=== PATIENT | male | born 1955 | race Caucasian/White ===

== ENCOUNTER 2020-04-28 10:27 | Emergency (ER) | payer OTHER, SELFPAY ==
[2020-04-28 10:43] VITALS: BP 141/74; PULSE 63; RESP 18; TEMP 36.6; O2SAT 100
--- NOTE | 2020-04-28 10:57 | ED.BACK ---
HPI - Back Pain/Injury General Chief Complaint: Back Pain/Injury Stated Complaint: Lower back pain Time Seen by Provider: 04/28/20 10:57 Source: patient and RN notes reviewed Mode of arrival: ambulatory Limitations: no limitations History of Present Illness HPI Narrative: 64-year-old male presents with concern for left low back pain that started yesterday. He denies any injury or trauma. Reports he bent over and when he stood up he felt the pain. Reports he has been taking ibuprofen and Tylenol with occasional relief. He denies any loss of bowel or bladder function, denies perianal anesthesia, denies abdominal pain, denies fever. MD elicited complaint: back pain Related Data Home Medications Medication Instructions Recorded Confirmed amlodipine 5 mg PO BID 04/28/20 04/28/20 lansoprazole [Prevacid] 30 mg PO DAILY 04/28/20 04/28/20 lisinopril 20 mg PO BID 04/28/20 04/28/20 pravastatin 40 mg PO DAILY 04/28/20 04/28/20 tamsulosin 0.4 mg PO DAILY 04/28/20 04/28/20 Allergies Allergy/AdvReac Type Severity Reaction Status Date / Time No Known Allergies Allergy Verified 04/28/20 10:58 Review of Systems Review of Systems: Narrative: CONSTITUTIONAL: Denies malaise, chills, sweats, or fever. CARDIOVASCULAR: Denies chest pain, palpitations, or edema. RESPIRATORY: Denies cough or dyspnea. GASTROINTESTINAL: Denies abdominal pain, nausea, vomiting, diarrhea GENITOURINARY: Denies dysuria or hematuria. SKIN: Denies bruising, redness MUSCULOSKELETAL: Reports left low back pain NEUROLOGIC: Denies numbness, weakness, or headache. All systems reviewed & are unremarkable except as noted in HPI and below PMFSH Comments At time of signature, agree with nursing past medical, surgical, social and family history. There is no relevant family history pertinent to the presenting complaint Exam Narrative: Exam Narrative: GENERAL: Well-appearing, well-nourished, and in no acute distress. HEAD: Normocephalic, atraumatic. EYES: PERRLA and EOMI. NECK: Supple. No lymphadenopathy. CHEST: Clear to auscultation. No respiratory distress. HEART: Regular rate and rhythm. Distal pulses palpable and equal, cap refill <3 seconds ABDOMEN: Soft, nontender, nondistended, normal active bowel sounds, no palpable or pulsatile masses. No CVA tenderness MUSCULOSKELETAL: Normal range of motion and strength in all extremities; 5/5 strength with hip flexion and extension, dorsiflexion and extension, knee flexion and extension, plantar flexion and extension. Normal sensation in dermatomal distributions with sensitivity to light touch and pain. No midline back tenderness to palpation. No paraspinal tenderness. Transfers from sitting to standing. SKIN: Warm, dry, no rash. No ecchymosis, erythema, open wounds to back. NEURO: No focal deficits. Alert and oriented x3. Reflexes intact. Normal gait. PSYCH: Normal mood and affect Course Course Emergency Course: Patient is aware of diagnosis, understands and agrees to treatment plan. Anticipatory guidance given. Patient agrees to follow-up as directed and is aware of reasons to seek care at the emergency department. Portions of this record may have been created with voice recognition software Vital Signs Vital signs: Vital Signs Temperature 97.8 F 04/28/20 10:43 Pulse Rate 63 04/28/20 10:43 Respiratory Rate 18 04/28/20 10:43 Blood Pressure 141/74 H 04/28/20 10:43 Pulse Oximetry 100 04/28/20 10:43 Temperature 97.8 F 04/28/20 10:43 Pulse Rate 63 04/28/20 10:43 Respiratory Rate 18 04/28/20 10:43 Blood Pressure 141/74 H 04/28/20 10:43 Pulse Oximetry 100 04/28/20 10:43 Reviewed. MDM - Back Pain/Injury MDM Narrative Medical decision making narrative: No risk factors or findings concerning for epidural abscess, diskitis, vertebral osteomyelitis, cord compression, cauda equina, vertebral fracture or bone malignancy, AAA, or pyelonephritis. Patient instructed to consider further imaging and
== END 2020-04-28 11:09 | disposition home or self-care (01) ==
PROVIDERS: Emergency Provider Nurse Practitioner; PCP Internal Medicine
DX: M54.5 Low back pain (principal); E78.00 Pure hypercholesterolemia, unspecified; I10 Essential (primary) hypertension; K21.9 Gastro-esophageal reflux disease without esophagitis; K22.70 Barrett's esophagus without dysplasia; N40.0 Benign prostatic hyperplasia without lower urinary tract symptoms
CPT/HCPCS: 99213; G0463

== ENCOUNTER 2022-02-26 14:12 | Emergency (ER) | payer MEDICARE, SELFPAY ==
--- NOTE | ~2022-02-26 | XR_ITS ---
XR foot LT min 3V DATE: 02/26/2022 14:42 INDICATION: Kicked in table 6 days ago. Fourth toe pain. TECHNIQUE: 4 views COMPARISON: None FINDINGS: No fracture or dislocation, periosteal reaction or bone destruction or erosive change is no georgie. Prominent calcification in the region of the distal Achilles tendon and prominent plantar calcaneal e nthesopathy. IMPRESSION: No recent fracture or dislocation Calcaneal enthesopathy Reviewed, dictated and finalized at location B.
--- NOTE | 2022-02-26 14:14 | ED.LOWEXIN ---
HPI - Extremity Injury (Lower) General Chief Complaint: Extremity Injury, Lower Stated Complaint: left foot toe problem Time Seen by Provider: 02/26/22 14:14 Source: patient and RN notes reviewed History of Present Illness HPI Narrative: Patient is a 66-year-old male who presents the urgent care with complaints of pain and swelling to the left fourth toe after kicking an end table 1 week ago. Patient states he has been elevating and using ice and ibuprofen as well as moira taping the toe. No other acute complaints. No acute distress noted. Patient aware of the plan of care. Some parts of this dictation were generated by voice recognition software and may contain typographical and/or grammatical inaccuracies. Related Data Home Medications Medication Instructions Recorded Confirmed amlodipine 5 mg tablet 5 mg PO BID 04/28/20 04/28/20 lansoprazole 30 mg capsule,delayed 30 mg PO DAILY 04/28/20 04/28/20 release (Prevacid) lisinopril 20 mg tablet 20 mg PO BID 04/28/20 04/28/20 pravastatin 40 mg tablet 40 mg PO DAILY 04/28/20 04/28/20 tamsulosin 0.4 mg capsule 0.4 mg PO DAILY 04/28/20 04/28/20 Allergies Allergy/AdvReac Type Severity Reaction Status Date / Time No Known Allergies Allergy Verified 02/26/22 14:30 Review of Systems Review of Systems: CONSTITUTIONAL: Denies fever, chills, or sweats. EYES: Denies visual changes, redness, or discharge. ENT: Denies rhinorrhea, congestion, sore throat, or otalgia. CARDIOVASCULAR: Denies chest pain, palpitations, or edema. RESPIRATORY: Denies cough or dyspnea. GASTROINTESTINAL: Denies abdominal pain, nausea, vomiting, or diarrhea. GENITOURINARY: Denies dysuria or hematuria. SKIN: Denies rash or itching. MUSCULOSKELETAL: Reports of left fourth toe pain and swelling NEUROLOGIC: Denies headache, numbness, or weakness. All other systems reviewed are negative, except as documented in HPI. PMFSH Comments At the time of my signature, I reviewed and agree with the nursing past medical, surgical, social, and family history. There is no relevant family history pertinent to the patient complaint. Exam Narrative: GENERAL: This is a well-nourished, well-developed patient, in no apparent distress. HEAD: normocephalic, atraumatic. EYES: PERRL. Sclera clear/white. Vision is grossly intact. EARS: External ears normal NOSE: External nose normal with no obvious nasal discharge, nares without redness, no rhinorrhea. THROAT: Mucous membranes moist NECK: Neck supple SKIN: warm, intact with no suspicious lesions or rash, good texture and turgor. NEURO: awake, alert, and oriented to person, place and time. There were no obvious focal neurologic abnormalities. EXTREMITIES: Mild edema and improving ecchymosis to the left fourth lower extremity digit with mild tenderness without obvious deformity. Positive strong left pedal pulse with capillary refill less than 2 seconds. Range of motion to left lower extremity within normal limits Course Course Level of Care: Express Care Visit Vital Signs Vital signs: Vital Signs Temperature 97.6 F 02/26/22 14:22 Pulse Rate 96 02/26/22 14:22 Respiratory Rate 20 02/26/22 14:22 Blood Pressure 144/90 H 02/26/22 14:22 Pulse Oximetry 99 02/26/22 14:22 Oxygen Delivery Room Air 02/26/22 14:22 Temperature 97.6 F 02/26/22 14:22 Pulse Rate 96 02/26/22 14:22 Respiratory Rate 20 02/26/22 14:22 Blood Pressure 144/90 H 02/26/22 14:22 Pulse Oximetry 99 02/26/22 14:22 Oxygen Delivery Room Air 02/26/22 14:22 Reviewed-patient is informed that they may have pre-hypertension or hypertension based on a blood pressure reading in the department. I recommend the patient call the primary care provider listed on their discharge instructions or a physician of their choice this week to arrange follow-up for further evaluation of possible pre-hypertension or hypertension. MDM - Extremity Injury (Lower) MDM Narrative Medical decision making n
[2022-02-26 14:22] VITALS: BP 144/90; PULSE 96; RESP 20; TEMP 36.4; O2SAT 99
== END 2022-02-26 15:03 | disposition home or self-care (01) ==
PROVIDERS: Emergency Provider Nurse Practitioner Family; PCP Internal Medicine
DX: S90.122A Contusion of left lesser toe(s) without damage to nail, initial encounter (principal); W22.03XA Walked into furniture, initial encounter; E78.00 Pure hypercholesterolemia, unspecified; I10 Essential (primary) hypertension; K21.9 Gastro-esophageal reflux disease without esophagitis; K22.70 Barrett's esophagus without dysplasia; N40.0 Benign prostatic hyperplasia without lower urinary tract symptoms
CPT/HCPCS: 73630; 99213; G0463

== ENCOUNTER 2023-05-31 16:29 | Emergency (ER) | payer MEDICARE, SELFPAY ==
[2023-05-31 16:40] VITALS: BP 162/101; PULSE 102; RESP 16; TEMP 36.6; O2SAT 98
--- NOTE | 2023-05-31 17:32 | ED.EAR ---
HPI - Ear Problem General Chief complaint: Ear Stated complaint: Left Ear Problem Time Seen by Provider: 05/31/23 16:50 Source: patient Mode of arrival: ambulatory Limitations: no limitations History of Present Illness HPI Narrative: Pavel is a 67-year-old male patient presenting to clinic today with complaints of left ear congestion and difficulty hearing. He reports he use some peroxide in his left ear and the peroxide did not come back out. Related Data Home Medications Medication Instructions Recorded Confirmed amlodipine 5 mg tablet 5 mg PO BID 04/28/20 05/31/23 lansoprazole 30 mg capsule,delayed 30 mg PO DAILY 04/28/20 05/31/23 release (Prevacid) lisinopril 20 mg tablet 20 mg PO BID 04/28/20 05/31/23 pravastatin 40 mg tablet 40 mg PO DAILY 04/28/20 05/31/23 tamsulosin 0.4 mg capsule 0.4 mg PO DAILY 04/28/20 05/31/23 Allergies Allergy/AdvReac Type Severity Reaction Status Date / Time No Known Allergies Allergy Verified 02/26/22 14:30 Review of Systems Review of Systems: Pertinent positives per HPI. Patient denies any fever, chills, rash, headache, visual changes, dizziness, cough, runny nose, sore throat, shortness of breath, chest pain, palpitations, nausea, vomiting, diarrhea, constipation, abdominal pain, or any urinary issues. PMFSH Comments At the time of my signature, I reviewed and agree with the nursing past medical, surgical, social, and family history. There is no relevant family history pertinent to the patient complaint. Exam Narrative: General: Well-developed, well nourished, in no apparent distress Head: Normocephalic, atraumatic Eyes: Pupils equally round and reactive to light bilaterally, EOM intact, sclera and conjunctive clear, no discharge, lids normal Ears: Bilateral cerumen impaction. Ear irrigation was performed successfully. TMs intact and congested, ear canals clear, no drainage, grossly hearing normal. Nose: Nares patent, no discharge, no inflammation, no sinus tenderness. Mouth: Oropharynx without lesions or masses, good dentition, MMM. Neck: Supple, trachea midline, no enlargement of anterior or posterior cervical nodes, no thyroid masses or goiter palpable. Cardio: Regular rate and rhythm, s1 and s2 normal, no murmur appreciated. Resp: Clear to auscultation bilaterally anteriorly and posteriorly, no rhonchi, rales, wheezing or rubs Course Course Emergency Course: Portions of this record may have been created with voice recognition software. Level of Care: Express Care Visit Vital Signs Vital signs: Vital Signs Temperature 36.6 C 05/31/23 16:40 Pulse Rate 102 H 05/31/23 16:40 Respiratory Rate 16 05/31/23 16:40 Blood Pressure 162/101 H 05/31/23 16:40 Pulse Oximetry 98 05/31/23 16:40 Oxygen Delivery Room Air 05/31/23 16:40 Temperature 36.6 C 05/31/23 16:40 Pulse Rate 102 H 05/31/23 16:40 Respiratory Rate 16 05/31/23 16:40 Blood Pressure 162/101 H 05/31/23 16:40 Pulse Oximetry 98 05/31/23 16:40 Oxygen Delivery Room Air 05/31/23 16:40 Vital signs reviewed Procedures Ear Wax Removal Both Ears: Ear Wax Removal Date: 05/31/23 Cerumenolytic Used: other (Peroxide) Results: Re-examined: cerumen removed completely TM Examination: TM(s) intact, normal appearance (Mild bulging) Ear Canal Exam: atraumatic Patient Tolerated Procedure: well and no complications Complications: no problems Technique: ear canal irrigated Additional Comments: Verbal consent obtained for ear irrigation. Risk and benefits explained and patient voiced understanding. Ear irrigation performed using an elephant ear and spray water bottle. Mixture of 1/2 peroxide 1/2 water used to irrigate ear canal. Cerumen impaction cleared and TM visualized without redness. Grossly hearing normal. Patient tolerated procedure well Medical Decision Making MDM Narrative Medical decision making narrat
== END 2023-05-31 17:38 | disposition home or self-care (01) ==
PROVIDERS: Emergency Provider Nurse Practitioner Family; PCP Internal Medicine
DX: H61.23 Impacted cerumen, bilateral (principal); E78.00 Pure hypercholesterolemia, unspecified; I10 Essential (primary) hypertension; K21.9 Gastro-esophageal reflux disease without esophagitis; K22.70 Barrett's esophagus without dysplasia; N40.0 Benign prostatic hyperplasia without lower urinary tract symptoms
CPT/HCPCS: 69209; 99212; A9270; G0463

== ENCOUNTER 2025-04-27 15:29 | Emergency (ER) | payer MEDICARE, SELFPAY ==
[2025-04-27 15:36] VITALS: BP 154/87; PULSE 97; RESP 20; TEMP 36.8; O2SAT 96
--- NOTE | 2025-04-27 15:52 | ED.WOUNDLAC ---
HPI - Wound/Laceration General Chief Complaint: Wound/Laceration Stated Complaint: Laceration to Finger Time Seen by Provider: 04/27/25 15:50 Source: patient and RN notes reviewed Mode of arrival: ambulatory Limitations: no limitations History of Present Illness HPI narrative: 69-year-old male patient presents to the [facility] complaining of laceration to his left for index finger. Patient reports having laceration to the dorsal surface of the left left index finger, Saint approximately 2 hours ago he was using a chainsaw when he accidentally cut his left finger. Patient denies any other injuries. Patient says is tetanus is up-to-date. Denies any numbness or tingling. Bleeding is controlled prior to arrival. Patient denies any dysfunction with his finger. Patient reports a history of a blood pressure and hyperlipidemia. Related Data Home Medications ?Medication ?Instructions ?Recorded ?Confirmed ?Last Taken ?Type amlodipine 5 mg tablet 5 mg PO BID 04/28/20 05/31/23 Unknown History lansoprazole 30 mg capsule,delayed 30 mg PO DAILY 04/28/20 05/31/23 Unknown History release (Prevacid) lisinopril 20 mg tablet 20 mg PO BID 04/28/20 05/31/23 Unknown History hydralazine 50 mg tablet mg 04/27/25 Unknown History hydrochlorothiazide 12.5 mg tablet mg 04/27/25 Unknown History pravastatin 20 mg tablet mg 04/27/25 Unknown History Allergies Allergy/AdvReac Type Severity Reaction Status Date / Time No Known Allergies Allergy Verified 04/27/25 15:40 Review of Systems Review of Systems: CONSTITUTIONAL: Denies fever, chills, or sweats. EYES: Denies visual changes, redness, or discharge. ENT: Denies rhinorrhea, congestion, sore throat, or otalgia. CARDIOVASCULAR: Denies chest pain, palpitations, or edema. RESPIRATORY: Denies cough or dyspnea. GASTROINTESTINAL: Denies abdominal pain, nausea, vomiting, or diarrhea. GENITOURINARY: Denies dysuria or hematuria. SKIN: Denies rash or itching. Severe laceration. MUSCULOSKELETAL: Denies back pain, joint pain, or myalgia. NEUROLOGIC: Denies headache, numbness, or weakness. PSYCHIATRIC: Denies anxiety or depression. All other systems reviewed are negative, except as documented in HPI. PMFSH Comments At the time of my signature, I reviewed and agree with the nursing past medical, surgical, social, and family history. There is no relevant family history pertinent to the patient complaint. Exam Narrative: GENERAL: This is a well-nourished, well-developed adult, in no apparent distress. They are non ill-appearing, nontoxic appearing. HEAD: normocephalic, atraumatic. EYES: Sclera clear/white. Conjunctiva normal. Vision is grossly intact. Extraocular movements intact EARS: External ears normal, Hearing grossly intact. NOSE: External nose normal THROAT: Mucous membranes moist, NECK: Neck supple, CARDIOVASCULAR: Regular rate and rhythm RESPIRATORY: Respiratory rate normal, respiratory effort nonlabored, no respiratory distress SKIN: warm, Dry, intact with no suspicious lesions or rash, good texture and turgor. NEURO: awake, alert, and oriented to person, place and time. There were no obvious focal neurologic abnormalities. EXTREMITIES: Left index point: Laceration to dorsal surface of the distal phalanx in between the PIP and PIP joint. It Is measuring approximately 2 cm long irregular/linear shaped. Wound approximates well. No surrounding erythema, no discharge, nontender to palpate. No bony tenderness. Patient able to flex and extend against resistance at the PIP, PIP, MCP joint. No injury to nail bed or plate. Capillary refill less than 2 seconds. Sensation intact. Neurovascular status intact distal injury. Radial, ulnar, median nerve distribution intact. Course Course Emergency Course: Portions of this record may have been created with voice recognition software Level of Care: Express Care Visit Vital Signs Vital signs: Vital Signs Temperature 98.2 F 04/27/25 15:36 Pulse Rate 97 04/27/25 15:36 Respiratory Rate 20 04/27/25 15:36 Blood Pressure 154/87 H 04/27/25 15:36 Pulse Oximetry 96 04/27/25 15:36 Oxygen Delivery Room Air 04/27/25 15:36 Temperature 98.2 F 04/27/25 15:36 Pulse Rate 97 04/27/25 15:36 Respiratory Rate 20 04/27/25 15:36 Blood Pressure 154/87 H 04/27/25 15:36 Pulse Oximetry 96 04/27/25 15:36 Oxygen Delivery Room Air 04/27/25 15:36 Reviewed Procedures Laceration Laceration 1: Date: 04/27/25 Time: 15:55 Site: hand (Left index finger) Side (If applicable): left Size (cm): 2 Description: linear and irregular Depth: simple, single layer Local Anesthetic: lidocaine 1% Amount of anesthesia used (mL): 2.5 Pre-repair: wound explored and irrigated extensively ====== Skin Level ====== Skin layer closed with: nylon Size (cm): 5-0 Number of sutures: 5 Technique: simple, interrupted ====== Subcutaneous Layer ====== ====== Muscle Layer ====== ====== Tendon Layer ====== Dressing: Antibiotic ointment, non adherent dressing, metal finger splint. MDM - Wound/Laceration MDM Narrative Medical decision making narrative: Neurovascular status intact distal to injury. Normal Function of left index finger. Successful laceration repair. Patient's tetanus is up today. No evidence of infection. Wound was cleaned is and dressed by nursing staff. Patient finger place the middle finger splint to help keep his finger straight to allow the wound to heal. Discussed physical exam findings. Advised supportive measures and signs/symptoms to go to the ER. Pt is appropriate for outpt treatment and f/u. Differential Diagnosis Differential diagnosis: Likely laceration, abrasion and avulsion of skin Critical Care Time Critical Care Time Critical Care Time: No Discharge Plan Discharge Clinical Impression: Finger laceration Qualifiers: Encounter type: initial encounter Finger: index finger Damage to nail status: without damage Foreign body presence: without foreign body Laterality: left Qualified Code(s): S61.211A - Laceration without foreign body of left index finger without damage to nail, initial encounter Patient Disposition: Home Condition: Stable Instructions: Antibiotic Form, Finger Laceration (ED) Additional Instructions: Your sutures need to be removed in 10-14 days. ?Wear the dressing that has been applied for the first 24 hours to allow a scab to start forming. ?After this, you may remove and wash as normal with soap and water. Do not soak or scrub the wound. ?Do NOT wash with peroxide or alcohol. ?You may apply antibiotic ointment or Vaseline to the wound daily. Please change the dressing daily or when soiled, apply nonadherent dressing such as a Band-Aid to the wound. You may leave it open to air at night. Wear the middle finger splint to keep your finger straight. Avoid dirty water to the wound has healed completely. Take tylenol or ibuprofen as needed for pain or fevers. Follow instructions on the bottle. Follow up with your PCP 3-5 days. Look for any signs of infection such as redness, swelling, increased pain, fevers, or drainage. ?Follow-up with hand specialist if any problems with your finger arises. Go to the ER for any signs of infection or any serious concerns. Patient Language: Kazakh Prescriptions: No Action lisinopril 20 mg Tablet 20 mg PO BID amlodipine 5 mg Tablet 5 mg PO BID lansoprazole [Prevacid] 30 mg Capsule,Delayed Release(Dr/Ec) 30 mg PO DAILY hydralazine 50 mg tablet pravastatin 20 mg tablet hydrochlorothiazide 12.5 mg tablet Follow-up/Referrals: Yu Camacho MD [Physician, Plastic Surgery] David,Dudley Saenz MD [Primary Care Provider, Unknown] Time of Disposition: 16:28
[2025-04-27] MEDS: LIDOCAINE 1% LOCAL INJ 2 ML AMPUL 4 ML INFILTRATE (15:57)
--- OUTSIDE RECORDS SUMMARY | 2025-04-27 17:31 | XMS_ITS | Encounter Summary ---
Author Organization [facility] Address [address] [place] [address] Phone Care Team Providers Care Special Procedures Technologist Name Role Phone Dudley Hernandez MD Primary Care Provider [phone] Reason for Visit * Reason Comments Medication Refill Encounter Details Date Type Department Care Team (Late st Contact Info) Description 09/03/[address] [facility] - Internal Medicine - [place] [address] [place] [id number] Dudley Hernandez MD [address] [place] [address] Medication Refill Social History Tobacco Use Types Packs/Day Years Used Date Smoking Tobacco: Never Smokeless Tobacco: Never PHQ-2 Answer Date Recorded Total Score - Questions 1-9 0 10/0 07/2019 Sex and Gender Information Value Date Recorded Sex Assigned at Not on file Legal Sex Male 12:34 AM CDT Gender Identity Not on file Sexual Orientation Not on file documented as of this encounter Miscellaneous Notes * Telephone Encounter - Nelly [place]ila RN - 09/05/2020 9:20 AM CST Please review and sign. [employer]IST documented in this encounter Plan of Treatment Upcoming Encounters Date Type Department Care Team (Late st Contact Info) Description 09/30/2025 10:00 AM CDT Office Visit [facility] - Primary Care - [place] [address] [place] [place] [address] Dudley Hernandez MD [address] [place] [address] documented as of this encounter Visit Diagnoses Not on filedocumented in this encounter Additional Health Concerns Infection Onset Date Last Indicated Resolved Time COVID - 19 12/18/2021 12/18/2021 12/28/2021 12:1 6 AM CDT COVID - 19 Confirmed 12/18/2021 12/18/2021 022 12:16 AM CDT Assessment Noted Time PHQ-9 Depression Total Score: 0 03/31/20 20 1:00 PM CDT documented as of this encounter Care Teams Special Procedures Technologist Relationship Specialty Start Date End Date Dudley Hernandez MD PCP - General Internal Medicine 08/13/19 documented as of this encounter
--- OUTSIDE RECORDS SUMMARY | 2025-04-27 17:31 | XMS_ITS | Clinical Summary ---
Author Organization [facility] [place] Address [address] [place] [address] Phone Care Team Providers Care Culinary Instructor Name Role Phone Dudley Hernandez MD Primary Care Provider Allergies No known active allergies Medications [place]-3 Krill Oil 300 MG Capsule Take by mouth. Activ e Multiple Vitamin (Multivitamins) Capsule Take 1 Cap by mouth. Active Coenzyme Q10 (CO Q 10 PO) Take by mouth. Ac tive pravastatin (PRAVACHOL) 20 MG Tablet TAKE 1 TABLET BY MOUTH EVERY DAY IN THE EVENING 90 Tablet 2 4 Active hydroCHLOROthia zide 12.5 MG Tablet TAKE 1 TABLET BY MOUTH DAILY 90 Tablet 1 5 Active lansoprazole (PREVACID) 30 MG CAPSULE DELAYED RELEASE Take 1 capsule by mouth once daily 180 Capsule 5 Active amLODIPine (NORVASC) 5 MG Tablet TAKE 1 TABLET BY MOUTH IN THE MORNING AND IN THE EVENING 180 Tablet 1 5 Active lisinopril (PRINIVIL, ZESTRIL) 20 MG Tablet TAKE 1 TABLET BY MOUTH IN THE MORNING AND IN THE EVENING 180 Tablet 1 5 Active hydrALAZINE 50 MG Tablet TAKE 1 TABLET BY MOUTH IN THE MORNING AND 1 TABLET IN THE EVENING 180 Tablet 1 5 Active meloxicam (MOBIC) 15 MG Tablet Take 1 Tablet by mouth daily as needed for Mild or more severe pain. 30 Tablet 5 Active methylPREDNISol one (MEDROL DOSPACK) 4 MG Tablet Therapy Pack Use as per instructions on package. 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 GERD without esophagitis 03/31/2020 Benign essential hypertension 10/16/2010 Mixed hyperlipidemia 10/16/2010 Encounters Date Type Department Care Team Description 04/26/2025 Travel 04/08/2025 Telephone [facility] [address] [place] [phone] Dudley Hernandez MD Follow-up; Neck Pain 04/04/2025 Results Follow-Up [address] [phone] Dudley Hernandez MD CMP (COMPREHENSIVE METABOLIC PANEL), LIPID PANEL, PSA SCREEN 04/02/2025 8:40 AM CDT Lab [address] [phone] Benign essential hypertension; Mixed hyperlipidemia; Screening for prostate cancer Discharge Disposition: Discharged to home or Selfcare 04/01/2025 10:00 AM CDT Office Visit [address] [phone] Dudley Hernandez MD Benign essential hypertension (Primary Dx); Encounter for immunization; Mixed hyperlipidemia; Screening for prostate cancer; Acute neck pain Discharge Disposition: Discharged to home or Selfcare 04/01/2025 Travel 03/22/2025 8:44 AM CDT Anesthesia Event [facility] Periop [address] [place] [address] Cachorro Kimble APRN, E BUSINESS SPECIALIST 03/22/2025 8:40 AM CDT - 03/22/2025 9:00 AM CDT Surgery [facility] [address] [place] [address] Shelia Lilly MD PhD CATARACT EXTRACTION WITH INTRAOCULAR LENS PLACEMENT, LEFT EYE 03/22/2025 7:20 AM CDT - 03/22/2025 9:07 AM CDT Hospital [facility] [place] [address] Shelia Lilly MD PhD Discharge Disposition: Discharged to home or Selfcare 03/22/2025 Travel 03/16/2025 Travel 03/08/2025 Refill [facility] - [place] [address] [place] [address] Dudley Hernandez MD Medication Refill 02/22/2025 9:40 AM CDT - 02/22/2025 10:00 AM CDT [facility] [place] [address] Shelia Lilly MD PhD CATARACT EXTRACTION WITH INTRAOCULAR LENS PLACEMENT, RIGHT EYE 02/22/2025 9:29 AM CDT [facility]est[facility] [address] [place] [address] Mukesh Lott MD 02/22/2025 8:09 AM CDT - 02/22/2025 10:03 AM CDT [facility] 1 [place] [address] Shelia Lilly MD PhD Discharge Disposition: Discharged to home or Selfcare 02/22/2025 Travel 02/11/2025 Travel 02/11/2025 Refill [facility] [place] [address] [place] [phone] Dudley Hernandez MD Medication Refill 02/10/2025 Patient Outreach [facility] [address] [place] [phone] Nicky Woods from Last 3 Months Immunizations Immunization Administration Dates Next Due Covid-19, Mrna, Lnp-s, Pf, 30 Mcg/0.3 Ml Dose (P fizer) 08/27/2020 Influenza Vaccine, Quadrivalent, PF 04/03/2022 Influenza, Quadrivalent, Adjuvanted 04/29/2023 Influenza, Trivalent, Adjuvanted, PF 04/01/2025, 03/31/2024 Pneumococcal conjugate PCV20 , polysaccharide [id number] conjugate, adjuvant, PF 04/03/2022 TDAP Vaccine 12/10/2020 Zoster Vaccine Recombinant 10/25/2022 Zoster Vaccine, live 11/01/2015,10/29/2015 Family History Medical History Relation Name Comments Heart Disease Father Cancer Mother No Known Problems Sister Relation Name Status Comments Father Mother Sister Alive Social History Tobacco Use Types Packs/Day Years Used Date Smoking Tobacco: Never Passive Smoke Exposure: Never Smokeless Tobacco: Never Tobacco Cessation:Counseling Given: Not Answered Alcohol Use Standard Drinks/Week Comments Not Currently 0 (1 standard drink = 0.6 oz pur e alcohol) [facility] [employer] Answer Date Recorded In the past 12 months has [employer], [employer], oil, or water [employer] threatened to shut off services in your home? No 09/30/2024 Social Connection and Isolation Panel Answer Date Recorded In a typical week, how many times do you talk on the phone with family, friends, or neighbors? Three times a week 09/30/2024 How often do you get togethe r with friends or relatives? Once a week 09/30/2024 How often do you attend [facility] or adventism services? More than 4 times per year 09/30/2024 Do you belong to any clubs o r organizations such as uatsdin groups, unions, fraternal or athletic groups, or school groups? Yes 09/30/2024 How often do you attend meet ings of the clubs or organizations you belong to? More than 4 times per year 09/30/2024 Are you , , di vorced, , never , or living with a partner? 09/30/2024 AUDIT-C Answer Date Recorded Q1: How often do you have a drink containing alcohol? Never 09/30/2024 Q2: How many drinks containi ng alcohol do you have on a typical day when you are drinking? Patient does not drink Q3: How often do you have si x or more drinks on one occasion? Never 09/30/2024 Overall Financial Resource Strain (CARDIA) Answe r Date Recorded How hard is it for you to pa y for the very basics like food, housing, medical care, and heating? Not hard at all 09/30/2024 PHQ-2 Answer Date Recorded Total Score - Questions 1-9 0 08/2024 [facility] of Occupat ional [facility] - Occupational Stress Questionnaire Answer Date Recorded Do you feel stress - tense, restless, nervous, or anxious, or unable to sleep at night because your mind is troubled all the time - these days? Not at all 09/30/2024 Exercise Vital Sign Answer Date Recorde d On average, how many days pe r week do you engage in moderate to strenuous exercise (like a brisk walk)? 4 days 09/30/2024 On average, how many minutes do you engage in exercise at this level? 20 min 09/30/2024 Hunger Vital Sign Answer Date Recorded Within the past 12 months, y ou worried that your food would run out before you got the money to buy more. Never true 10/01/19 25 Within the past 12 months, t he food you bought just didn't last and you didn't have money to get more. Never true 09/30/2024 PRAPARE - Transportation Answer Date Re corded In the past 12 months, has l ack of transportation kept you from medical appointments or from getting medications? No 08/2024 In the past 12 months, has l ack of transportation kept you from meetings, work, or from getting things needed for daily living? No 09/30/2024 Housing Stability Vital Sign Answer Ahsan e Recorded In the last 12 months, was t here a time when you were not able to pay the mortgage or rent on time? No 10/30/2023 In the last 12 months, how many places have you lived? 2 10/30/2023 In the last 12 months, was t here a time when you did not have a steady place to sleep or slept in a fdc (including now)? No 10/30/2023 Housing Stability Vital Sign Answer Ahsan e Recorded In the last 12 months, was t here a time when you were not able to pay the mortgage or rent on time? No 09/30/2024 Number of Times Moved in the Last Year Not on fi le 09/30/2024 At any time in the past 12 m [facility], were you homeless or living in a fdc (including now)? No 09/30/2024 Education Answer Date Recorded What is the highest level of school you have completed or the highest degree you have received? 12th grade 10/02/2022 Sexually Active Control Partners Comments Not Currently Sex and Gender Information Value Date Recorded Sex Assigned at Not on file Legal Sex Male 12:34 AM CDT Gender Identity Not on file Sexual Orientation Not on file Last Filed Vital Signs Vital Sign Reading Time Taken Comments Blood Pressure 126/76 04/01/2025 9:32 AM CDT Pulse 86 04/01/2025 9:32 AM CDT Temperature 36.3 C (97.4 F) 04/01/2025 9:32 AM CDT Respiratory Rate 16 03/22/2025 9:04 AM CDT Oxygen Saturation 96% 04/01/2025 9:32 AM CDT Inhaled Oxygen Concentration - - Weight 104.3 kg (230 lb) 04/01/2025 9:32 AM CDT Height 175.3 cm (5' 9) 04/01/2025 9:32 AM CDT Body Mass Index 33.97 04/01/2025 9:32 AM CDT Plan of Treatment Upcoming Encounters Date Type Department Care Team (Late st Contact Info) Description 09/30/2025 10:00 AM CDT Office Visit [facility] [place] [address] [place] [phone] Dudley Hernandez MD [address] [place] [address] Health Maintenance Due Date Last Done Comments Hepatitis C Virus (HCV) Screening 1955 Cologuard 2000 Immunochemical Fecal Occult Blood 2000 Medicare Initial AWV [id number] 09/29/2021 SARS-COV-2 Immunization ( season) 2025 09/17/2020, 08/27/2020 Respiratory Syncytial Virus (RSV) Immunization (Adult) (1 - 1-dose 75+ series) 2030 Td Immunization Every 10 Years (Adults With 1 Tdap) 12/10/2030 12/10/2020 Colonoscopy 07/13/2032 07/13/2022, 07/01, 07/13/2022, Additional history exists Colorectal Cancer Screening 07/13/2032 DTaP/Tdap/Td Immunization Discontinued 12/10/2020 Pneumococcal Immunization (50+ years) Completed 04/03/2022 Pneumococcal Immunization Combined Discontinued 04/03/2022 Zoster Immunization Completed 12/20/2022, 10/25/2022, 11/01/2015, Additional history exists Influenza Immunization Completed , 03/31/2024, 04/29/2023, Additional history exists PSA Discussion Completed 04/02/2025, 08/2022, 05/02/2020 Hepatitis B Immunization Aged Out No longer eligible based on patient's age to complete this topic Human Papillomavirus (HPV) Immunization Aged Out No longer eligible based on patient's age to complete this topic Meningococcal Immunization (ACWY) Aged Out No longer eligible based on patient's age to complete this topic Rotavirus Immunization Aged Out No lo nger eligible based on patient's age to complete this topic Medical Devices Implanted Type Area Robotics Technician Device Identifier Shelf Expiration Date Model / Serial / Lot Lens Iol 1-Piece Preloaded 34.0 Diopter 6mm 13mm Posterior Chamber Monofocal Aspheric Biconvex - [id number] Implanted:Qty: 1 on 02/22/2025 by Shelia Lilly MD PhD at [facility] IMPLANT [employer] 12/16/2027 DCB00 / [id number] / [id number] Lens Iol 1-Piece Preloaded Posterior Chamber Monofocal Aspheric Biconvex Anterior - [id number] Implanted:Qty: 1 on 03/22/2025 [facility]PLANT Left: Eye [employer] 12/15/2027 [id number] / [id number] / [id number] Procedures Procedure Name Priority Date/Time Associated Diagnosis Comments PSA SCREEN Routine 04/02/2025 8:24 AM CDT Screening for prostate cancer LIPID PANEL Routine 04/02/2025 8:24 AM CDT Benign essential hypertension Mixed hyperlipidemia CMP (COMPREHENSIVE METABOLIC PANEL) Routine 04/02/2025 8:24 AM CDT Benign essential hypertension Mixed hyperlipidemia EXTCAP RMVL INSERT INTRAOC PROSTH W/ECP 03/22/2025 8:38 AM CDT VISUALLY SIGNIFICANT CATARACT, LEFT EYE Special Needs 5'9 225lbs EXTCAP INSERT INTROC PROSTH W/ECP 03/22/2025 8:38 AM CDT VISUALLY SIGNIFICANT CATARACT, LEFT EYE Special Needs 5'9 225lbs AL XCAPSL CTRC RMVL INSJ IO LENS PROSTH W/O ECP 03/22/2025 8:38 AM CDT VISUALLY SIGNIFICANT CATARACT, LEFT EYE Special Needs 5'9 225lbs REMV CATARACT INTRACAP,INSERT LENS 03/22/2025 8:38 AM CDT VISUALLY SIGNIFICANT CATARACT, LEFT EYE Special Needs 5'9 225lbs AL XCAPSL CTRC RMVL INSJ IO LENS PROSTH CPLX WO ECP 03/22/2025 8:38 AM CDT VISUALLY SIGNIFICANT CATARACT, LEFT EYE Special Needs 5'9 225lbs EXTCAP RMVL INSERT INTRAOC PROSTH W/ECP 02/22/2025 9:24 AM CDT VISUALLY SIGNIFICANT CATARACT, RIGHT EYE Special Needs 5'9 225lbs EXTCAP INSERT INTROC PROSTH W/ECP 02/22/2025 9:24 AM CDT VISUALLY SIGNIFICANT CATARACT, RIGHT EYE Special Needs 5'9 225lbs AL XCAPSL CTRC RMVL INSJ IO LENS PROSTH W/O ECP 02/22/2025 9:24 AM CDT VISUALLY SIGNIFICANT CATARACT, RIGHT EYE Special Needs 5'9 225lbs REMV CATARACT INTRACAP,INSERT LENS 02/22/2025 9:24 AM CDT VISUALLY SIGNIFICANT CATARACT, RIGHT EYE Special Needs 5'9 225lbs AL XCAPSL CTRC RMVL INSJ IO LENS PROSTH CPLX WO ECP 02/22/2025 9:24 AM CDT VISUALLY SIGNIFICANT CATARACT, RIGHT EYE Special Needs 5'9 225lbs HM COLONOSCOPY 07/13/2022 12:00 AM TOWEL SEWER from Last 3 Months or Most Recently Relevant to Health Maintenance Results * PSA SCREEN (04/02/2025 8:24 AM CDT) PSA SCREEN, TOTAL 0.97 <4.00 ng/mL 04/02/2025 1:18 PM CDT [facility] Blood Venipuncture / Unknown 04/02/2025 8:24 AM CDT 04/02/2025 8:24 AM CDT Narrative [facility] - 04/02/2025 1:18 PM CDT The ALINITY Total PSA assay is a Chemiluminescent Microparticle Immunoassay (CMIA) for the quantitative determination of total PSA (both free PSA and PSA complexed to [id number]) in human serum. Total PSA values obtained with different assay methods, including Mark PSA assays, cannot be used interchangeably. us Dudley Hernandez MD CHEMISTRY ORDERABLES Final Result [facility] [place] [address] * (ABNORMAL) LIPID PANEL (04/02/2025 8:24 AM CDT) CHOLESTEROL 179 <200 mg/dL 04/02/2025 1:14 PM CDT [facility] TRIGLYCERIDES 216(H) <150 mg/dL 04/02/2025 1:14 PM CDT [facility] HDL CHOLESTEROL 37(L) >40 mg/dL 1:14 PM CDT [facility] LDL 99 <130 mg/dL 04/02/2025 1:14 PM CDT [facility] VLDL 43 10 - 50 mg/dL 04/02/2025 1:14 PM CDT [facility] CHOL/HDL RATIO 4.8(H) 0.0 - 4.4 04/02/2025 1:14 PM CDT [facility] NON-HDL CHOLESTEROL 142(H) <130 mg/dL 04/02/2025 1:14 PM CDT [facility] Blood Venipuncture / Unknown 04/02/2025 8:24 AM CDT 04/02/2025 8:24 AM CDT us Dudley Hernandez MD CHEMISTRY ORDERABLES Final Result [facility] [address] [place] [address] * CMP (COMPREHENSIVE METABOLIC PANEL) (04/02/2025 8:24 AM CDT) SODIUM 141 136 - 145 mmol/L 04/02/2025 1:14 PM CDT [facility] POTASSIUM 4.1 3.5 - 5.1 mmol/L 04/02/2025 1:14 PM CDT [facility] CHLORIDE 106 98 - 107 mmol/L 04/02/2025 1:14 PM CDT [facility] CO2, VENOUS 25 22 - 30 mmol/L 04/02/2025 1:14 PM CDT [facility] ANION GAP 14.1 <18.0 mmol/L 04/02/2025 1:14 PM CDT [facility] GLUCOSE 95 70 - 99 mg/dL 04/02/2025 1:14 PM CDT [facility] BUN 14 8 - 26 mg/dL 04/02/2025 1:14 PM CDT [facility] CREATININE, BLOOD 1.01 0.70 - 1.30 mg/dL 04/02/2025 1:14 PM CDT [facility] BUN/CREATININE RATIO 14 12 - 20 ratio 04/02/2025 1:14 PM CDT [facility] TOTAL PROTEIN 7.3 6.0 - 8.0 g/dL 04/02/2025 1:14 PM CDT [facility] ALBUMIN 4.7 3.5 - 5.0 g/dL 04/02/2025 1:14 PM CDT [facility] A/G RATIO 1.8 1.0 - 2.2 04/02/2025 1:14 PM CDT [facility] CALCIUM 9.6 8.7 - 10.5 mg/dL 04/02/2025 1:14 PM T [facility] T BILI 0.5 0.2 - 1.2 mg/dL 04/02/2025 1:14 PM CDT [facility] SGOT (AST) 21 <43 U/L 04/02/2025 1:14 PM T [facility] SGPT (ALT) 28 <56 U/L 04/02/2025 1:14 PM T [facility] ALKALINE PHOSPHATASE 94 40 - 150 U/L 04/02/2025 1:14 PM [facility] IS THE PATIENT REQUIRED TO BE FASTING? Yes 04/02/2025 1:14 PM [facility] HAS THE PATIENT BEEN FASTING? Yes 04/02/2025 1:14 PM [facility] GFR, ESTIMATED >60 >=60 04/02/2025 1:14 PM [facility] Comment: Creatinine Clearance is the preferred criteria for selecting drug dose adjustments in renally impaired patients. The GFR is provided as additional pertinent clinical information. GFR is reported in mL/min/1.73 sq m. Calculation based on the 2020 Chronic Kidney Disease Epidemiology Collaboration (CKD-EPI) equation refit without adjustment for race. GFR, EST. >60 >=60 1:14 PM [facility] Comment: Creatinine Clearance is the preferred criteria for selecting drug dose adjustments in renally impaired patients. The GFR is provided as additional pertinent clinical information. GFR is reported in mL/min/1.73 sq m. Calculation based on the 2009 Chronic Kidney Disease Epidemiology Collaboration (CKD-EPI). GFR, EST. NONAFRICAN >60 >=60 04/02/2025 1:14 PM [facility] Comment: Creatinine Clearance is the preferred criteria for selecting drug dose adjustments in renally impaired patients. The GFR is provided as additional pertinent clinical information. GFR is reported in mL/min/1.73 sq m. Calculation based on the 2009 Chronic Kidney Disease Epidemiology Collaboration (CKD-EPI). Blood Venipuncture / Unknown 04/02/2025 8:24 AM CDT 04/02/2025 8:24 AM CDT us Dudley Hernandez MD CHEMISTRY ORDERABLES Final Result [facility] [place] [address] * HM COLONOSCOPY (07/13/2022 12:00 AM TOWEL SEWER) 07/13/2022 us Provider Scan PROCEDURE/MINOR SURGICAL ORDERAB LES Final Result SCAN from Last 3 Months or Most Recently Relevant to Health Maintenance Insurance MEDICARE [facility] Care Teams Culinary Instructor Relationship Specialty Start Date End Date Dudley Hernandez MD PCP - General Internal Medicine 08/13/19
--- OUTSIDE RECORDS SUMMARY | 2025-04-27 17:31 | XMS_ITS | Encounter Summary ---
Author Organization [employer] Care Team Providers Care Automotive Internet Sales Consultant Name Role Phone Dudley Hernandez MD Primary Care Provider [phone] Encounter Details Date Type Department Care Team (Latest Contact Info) Description 04/26/2025 Travel Social History Tobacco Use Types Packs/Day Years Used Date Smoking Tobacco: Never Passive Smoke Exposure: Never Smokeless Tobacco: Never Alcohol Use Standard Drinks/Week Comments Not Currently 0 (1 standard drink = 0.6 oz pur e alcohol) [facility] Utilities Answer Date Recorded In the past 12 months has [employer], gas, oil, or water company threatened to shut off services in your home? No 09/30/2024 Social Connection and Isolation Panel Answer Date Recorded In a typical week, how many times do you talk on the phone with family, friends, or neighbors? Three times a week 09/30/2024 How often do you get togethe r with friends or relatives? Once a week 09/30/2024 How often do you attend [facility] or taoist services? More than 4 times per year 09/30/2024 Do you belong to any clubs o r organizations such as protestant groups, unions, fraternal or athletic groups, or [...] Total Score - Questions 1-9 0 08/2024 [facility] of Occupat ional [facility] - Occupational Stress Questionnaire Answer Date [...] place to sleep or slept in a snf (including now)? No 10/30/2023 Housing Stability Vital Sign Answer Ahsan e Recorded In the last 12 months, was t here a time when you were not able to pay the mortgage or rent on time? No 09/30/2024 Number of Times Moved in the Last Year Not on fi le 09/30/2024 At any time in the past 12 m [facility], were you homeless or living in a snf (including now)? No 09/30/2024 Education Answer Date [...] on file documented as of this encounter Plan of Treatment Upcoming Encounters Date Type Department Care Team (Late st Contact Info) Description 09/30/2025 10:00 AM CDT [facility] [place] [address] [place] [address] Dudley Hernandez MD [address] [place] [address] documented as of this encounter Visit Diagnoses Not on filedocumented in this encounter Additional Health Concerns Assessment Noted Time PHQ-9 Depression Total Score: 0 07/02/19 25 9:56 AM MEDICAL CONCIERGE documented as of this encounter Care Teams Automotive Internet Sales Consultant Relationship Specialty Start Date End Date Dudley Hernandez MD PCP - General Internal Medicine 08/13/19 documented as of this encounter
--- OUTSIDE RECORDS SUMMARY | 2025-04-27 17:31 | XMS_ITS | Encounter Summary ---
Author Organization [facility] Address [address] [place] [address] Phone Care Team Providers Care Cotton Breeder Name Role Phone Dudley Hernandez MD Primary Care Provider [phone] Reason for Visit * Reason Comments Medication Refill Encounter Details Date Type Department Care Team (Late st Contact Info) Description 05/06/2020 Refill [facility] - Internal Medicine - [place] [address] [place] [phone] Dudley Hernandez MD [address] [place] [address] Medication Refill Social History Tobacco Use Types Packs/Day Years Used Date Smoking Tobacco: Never Smokeless Tobacco: Never PHQ-2 Answer Date Recorded Total Score - Questions 1-9 0 0 07/2019 Sex and Gender Information Value Date Recorded Sex Assigned at Not on file Legal Sex Male 12:34 AM CDT Gender Identity Not on file Sexual Orientation Not on file documented as of this encounter Miscellaneous Notes * Telephone Encounter - Nelly Davila RN - 05/06/2020 8:29 AM CST Please review and sign. MATERIAL PLANNER documented in this encounter Plan of Treatment Upcoming Encounters Date Type Department Care Team (Late st Contact Info) Description 09/30/2025 10:00 AM CDT Office Visit [facility] - Primary Care - [place] [address] [place] [phone] Dudley Hernandez MD [address] [place] [address] documented as of this encounter Visit Diagnoses Not on filedocumented in this encounter Additional Health Concerns Infection Onset Date Last Indicated Resolved Time COVID - 19 12/18/2021 12/18/2021 12/28/2021 12:1 6 AM CDT COVID - 19 Confirmed 12/18/2021 12/18/2021 022 12:16 AM CDT Assessment Noted Time PHQ-9 Depression Total Score: 0 03/31/20 20 1:00 PM CDT documented as of this encounter Care Teams Cotton Breeder Relationship Specialty Start Date End Date Dudley Hernandez MD PCP - General Internal Medicine 08/13/19 documented as of this encounter
--- OUTSIDE RECORDS SUMMARY | 2025-04-27 17:31 | XMS_ITS | Encounter Summary ---
Author Organization [facility] Address [address] [place] [address] Phone Care Team Providers Care Parks Recreation Coordinator Name Role Phone Dudley Hernandez MD Primary Care Provider [phone] [phone] Reason for Visit * Reason Comments Medication Refill Encounter Details Date Type Department Care Team (Late st Contact Info) Description 09/05/2023 [facility]ill [facility] - [facility] - [place] [address] [place] [phone] Dudley Hernandez MD [address] [place] [address] Medication Refill Social History Tobacco Use Types Packs/Day Years Used Date Smoking Tobacco: Never Passive Smoke Exposure: Never Smokeless Tobacco: Never Alcohol Use Standard Drinks/Week Comments Not Currently 0 (1 standard drink = 0.6 oz pur e alcohol) PHQ-2 Answer Date Recorded Total Score - Questions 1-9 0 10/2021 Education Answer Date Recorded What is the [...] encounter Miscellaneous Notes * Telephone Encounter - Malorie Ling RN - 09/05/2023 1:27 PM CST Medication(s) [facility] Med[facility] Refill Standing Order for Pediatricand Adult Patients. Requested Prescriptions Pending Prescriptions Disp Refills lansoprazole (PREVACID) 30 MG CAPSULE DELAYED RELEASE [Pharmacy Med Name: LANSOPRAZOLE 30MG DR CAPSULES] 90 Capsule 1 Sig: TAKE 1 CAPSULE BY MOUTH DAILY Proton Pump Inhibitors Protocol Passed - 09/05/2023 11:58 AM Passed - Visit with relevant provider in past 12 months or upcoming 90 days Recent Visits Date Type Provider Dept 04/29/23 [facility] [place] 10/02/22 Office Visit Dudley Hernandez MD [facility] [place] Showing recent visits within past 365 days and meeting all other requirements Future Appointments Date Type Provider Dept 10/30/23 Appointment [facility] [place] Showing future appointments within next 90 days and meeting all other requirements SPORTATION SECURITY OFFICER documented in this encounter Plan of Treatment Upcoming Encounters Date Type Department Care Team (Late st Contact Info) Description 09/30/2025 10:00 AM CDT Office Visit [facility] - Primary Care - [place] [address] [place] [address] Dudley Hernandez MD [address] [place] [address] documented as of this encounter Visit Diagnoses Not on filedocumented in this encounter Additional Health Concerns Assessment Noted Time PHQ-9 Depression Total Score: 0 09/24/19 21 9:00 AM CDT documented as of this encounter Care Teams Parks Recreation Coordinator Relationship Specialty Start Date End Date Dudley Hernandez MD PCP - General Internal Medicine 08/13/19 documented as of this encounter
--- OUTSIDE RECORDS SUMMARY | 2025-04-27 17:31 | XMS_ITS | Encounter Summary ---
Author Organization [facility] Address [address] [place] [address] Phone Care Team Providers Care Project Consultant Name Role Phone Dudley Hernandez MD Primary Care Provider [phone] Reason for Visit * Reason Comments Medication Refill Encounter Details Date Type Department Care Team (Late st Contact Info) Description 10/02/2020 Refill [facility] - Internal Medicine - [place] [address] [place] [phone] Dudley Hernandez MD [address] [place] [address] Medication Refill Social History Tobacco Use Types Packs/Day Years Used Date Smoking Tobacco: Never Smokeless Tobacco: Never PHQ-2 Answer Date Recorded Total Score - Questions 1-9 0 08/30 Sex and Gender Information Value Date Recorded Sex Assigned at Not on file Legal Sex Male 12:34 AM CDT Gender Identity Not on file Sexual Orientation Not on file COVID-19 Exposure Response Date Recorded In the last month, have you been in contact with someone who was confirmed or suspected to have Coronavirus / COVID-19? No / Unsure 09/23/2020 9:41 AM CDT documented as of this encounter Plan of Treatment Upcoming Encounters Date Type Department Care Team (Late st Contact Info) Description 09/30/2025 10:00 AM CDT Office Visit [facility] - Primary Care - [place] [address] [place] [address] Dudley Hernandez MD [address] [place] [address] documented as of this encounter Visit Diagnoses Not on filedocumented in this encounter Additional Health Concerns Infection Onset Date Last Indicated Resolved Time COVID - 19 12/18/2021 12/18/2021 12/28/2021 12:1 6 AM CDT COVID - 19 Confirmed 12/18/2021 12/18/2021 022 12:16 AM CDT Assessment Noted Time PHQ-9 Depression Total Score: 0 09/24/19 21 9:00 AM CDT documented as of this encounter Care Teams Project Consultant Relationship Specialty Start Date End Date Dudley Hernandez MD PCP - General Internal Medicine 08/13/19 documented as of this encounter
--- OUTSIDE RECORDS SUMMARY | 2025-04-27 17:31 | XMS_ITS | Encounter Summary ---
Author Organization [facility] Address [address] [place] [address] Phone Care Team Providers Care Java Security Engineer Name Role Phone Dudley Hernandez MD Primary Care Provider [phone] Reason for Visit * Reason Comments Medication Refill Encounter Details Date Type Department Care Team (Late st Contact Info) Description 10/11/2023 Refill [facility] - [place] [address] [place] [phone] Dudley Hernandez MD [address] [place] [address] Medication Refill Social History Tobacco [...] encounter Miscellaneous Notes * Telephone Encounter - Flaca Pederson RN - 10/11/2023 8:12 AM CDT Medication(s) [facility] Medication Refill Standing Order for Pediatricand Adult Patients. Requested Prescriptions Pending Prescriptions Disp Refills pravastatin (PRAVACHOL) 20 MG Tablet [Pharmacy Med Name: PRAVASTATIN SODIUM 20 MG TAB] 90 Tablet 2 Sig: TAKE 1 TABLET BY MOUTH EVERY DAY IN THE EVENING Hmg CoA Reductase Inhibitors Protocol Passed - 10/11/2023 12:36 AM Passed - Visit with relevant provider in past 12 months or upcoming 90 days Recent Visits Date Type Provider Dept 04/29/23 Office Visit Dudley Hernandez MD [facility] Showing recent visits within past 365 days and meeting all other requirements Future Appointments Date Type Provider Dept 10/30/23 Appointment Dudley Hernandez MD [facility] Showing future appointments within next 90 days and meeting all other requirements Passed - Lipid panel in past 12 months LDL Date Value Ref Range Status 05/02/2023 104 <130 mg/dL Final HDL CHOLESTEROL Date Value Ref Range Status 05/02/2023 35 (L) >40 mg/dL Final CHOLESTEROL Date Value Ref Range Status 05/02/2023 187 <200 mg/dL Final TRIGLYCERIDES Date Value Ref Range Status 05/02/2023 241 (H) <150 mg/dL Final VLDL Date Value Ref Range Status 05/02/2023 48 10 - 50 mg/dL Final CHOL/HDL RATIO Date Value Ref Range Status 05/02/2023 5.3 (H) 0.0 - 4.4 Final NON-HDL CHOLESTEROL Date Value Ref Range Status 05/02/2023 152 (H) <130 mg/dL Final Passed - CMP in past 12 months SODIUM Date Value Ref Range Status 05/02/2023 140 136 - 145 mmol/L Final POTASSIUM Date Value Ref Range Status 05/02/2023 4.3 3.5 - 5.1 mmol/L Final CHLORIDE Date Value Ref Range Status 05/02/2023 105 98 - 107 mmol/L Final CO2, VENOUS Date Value Ref Range Status 05/02/2023 25 22 - 30 mmol/L Final ANION GAP Date Value Ref Range Status 05/02/2023 14.3 <18.0 mmol/L Final GLUCOSE Date Value Ref Range Status 05/02/2023 83 70 - 99 mg/dL Final BUN Date Value Ref Range Status 05/02/2023 19 8 - 26 mg/dL Final CREATININE, BLOOD Date Value Ref Range Status 05/02/2023 1.11 0.70 - 1.30 mg/dL Final BUN/CREATININE RATIO Date Value Ref Range Status 05/02/2023 17 12 - 20 ratio Final TOTAL PROTEIN Date Value Ref Range Status 05/02/2023 7.7 6.3 - 8.2 g/dL Final ALBUMIN Date Value Ref Range Status 05/02/2023 4.6 3.5 - 5.0 g/dL Final A/G RATIO Date Value Ref Range Status 05/02/2023 1.5 1.0 - 2.2 Final CALCIUM Date Value Ref Range Status 05/02/2023 9.7 8.7 - 10.5 mg/dL Final T BILI Date Value Ref Range Status 05/02/2023 0.4 0.2 - 1.2 mg/dL Final SGOT (AST) Date Value Ref Range Status 05/02/2023 18 5 - 34 U/L Final SGPT (ALT) Date Value Ref Range Status 05/02/2023 22 0 - 55 U/L Final ALKALINE PHOSPHATASE Date Value Ref Range Status 05/02/2023 98 40 - 150 U/L Final GFR, EST. NONAFRICAN Date Value Ref Range Status 05/02/2023 >60 >=60 Final GFR, EST. Date Value Ref Range Status 05/02/2023 >60 >=60 Final GFR, ESTIMATED Date Value Ref Range Status 05/02/2023 >60 >=60 Final Comment: Creatinine Clearance is the preferred criteria for selecting drug dose adjustments in renally impaired patients. The GFR is provided as additional pertinent clinical information. GFR is reported in mL/min/1.73 sq m. Calculation based on the Chronic Kidney Disease Epidemiology Collaboration (CKD- EPI) equation refitwithout adjustment for race. IS THE PATIENT REQUIRED TO BE FASTING? Date Value Ref Range Status 05/02/2023 No Final documented in this encounter Plan of Treatment Upcoming Encounters Date Type Department Care Team (Late st Contact Info) Description 09/30/2025 10:00 AM CDT Office Visit [facility] - Primary Care - [place] [address] [place] [address] Dudley Hernandez MD [address] [place] [address] documented as of this encounter Visit Diagnoses Not on filedocumented in this encounter Additional Health Concerns Assessment Noted Time PHQ-9 Depression Total Score: 0 09/24/19 21 9:00 AM CDT documented as of this encounter Care Teams Java Security Engineer Relationship Specialty Start Date End Date Dudley Hernandez MD PCP - General Internal Medicine 08/13/19 documented as of this encounter
--- OUTSIDE RECORDS SUMMARY | 2025-04-27 17:31 | XMS_ITS | Encounter Summary ---
Author Organization [facility] Address [address] [place] [address] Phone Care Team Providers Care Front Office Attendant Name Role Phone Dudley Hernandez MD Primary Care Provider [phone]- [phone] Reason for Visit * Reason Comments Medication Refill Encounter Details Date Type Department Care Team (Late st Contact Info) Description 10/08/2020 Refill [facility] - [place] [address] [place] [phone] Dudley Hernandez MD [address] [place] [address] Medication Refill Social History Tobacco [...] AM CDT documented as of this encounter Miscellaneous Notes * Telephone Encounter - Nelly Davila RN - 10/10/2020 8:06 AM CDT Please review and sign. documented in this encounter Plan of Treatment Upcoming Encounters Date Type Department Care Team (Late st Contact Info) Description 09/30/2025 10:00 AM CDT Office Visit [facility] - Primary Care - [place] [address] [place] [address] Dudley Hernandez MD [address] [place] [address] documented as of this encounter Visit Diagnoses Not on filedocumented in this encounter Additional Health Concerns Infection Onset Date Last Indicated Resolved Time COVID - 19 12/18/2021 12/18/2021 12/28/2021 12:1 6 AM CDT COVID - 19 Confirmed 12/18/2021 12/18/2021 022 12:16 AM CDT Assessment Noted Time PHQ-9 Depression Total Score: 0 09/24/19 21 9:00 AM CDT documented as of this encounter Care Teams Front Office Attendant Relationship Specialty Start Date End Date Dudley Hernandez MD PCP - General Internal Medicine 08/13/19 documented as of this encounter
--- OUTSIDE RECORDS SUMMARY | 2025-04-27 17:31 | XMS_ITS | Encounter Summary ---
Author Organization [facility] Address [address] [place] [address] Phone Care Team Providers Care Corporate Real Estate Manager Name Role Phone Dudley Hernandez MD Primary Care Provider [phone] Reason for Visit * Reason Comments Medication Refill Encounter Details Date Type Department Care Team (Late st Contact Info) Description 02/04/2024 Refill [facility] - Internal Medicine - [place] [address] [place] [phone] Dudley Hernandez MD [address] [place] [address] Medication Refill Social History Tobacco Use Types Packs/Day Years Used Date Smoking Tobacco: Never Passive Smoke Exposure: Never Smokeless Tobacco: Never Alcohol Use Standard Drinks/Week Comments Not Currently 0 (1 standard drink = 0.6 oz pur e alcohol) [facility] Utilities Answer Date Recorded In the past 12 months has [employer], gas, oil, or water [employer] threatened to shut off services in your home? No 10/30/2023 Social Connection and Isolation Panel Answer Date Recorded In a typical week, how many times do you talk on the phone with family, friends, or neighbors? More than three times a week 10/30/2023 How often do you get togethe r with friends or relatives? More than three times a week 10/30/2023 How often do you attend [facility] or denominational services? More than 4 times per year 10/30/2023 Do you belong to any clubs o r organizations such as jewish groups, unions, fraternal or athletic groups, or school groups? Yes 10/30/2023 How often do you attend meet ings of the clubs or organizations you belong to? More than 4 times per year 10/30/2023 Are you , , di vorced, , never , or living with a partner? 10/30/2023 AUDIT-C Answer Date Recorded Q1: How often do you have a drink containing alcohol? Never 10/30/2023 Q2: How many drinks containi ng alcohol do you have on a typical day when you are drinking? Patient does not drink Q3: How often do you have si x or more drinks on one occasion? Never 10/30/2023 Overall Financial Resource Strain (CARDIA) Answe r Date Recorded How hard is it for you to pa y for the very basics like food, housing, medical care, and heating? Not hard at all 10/30/2023 PHQ-2 Answer Date Recorded Total Score - Questions 1-9 0 07/2023 [facility] - Occupational Stress Questionnaire Answer Date Recorded Do you feel stress - tense, restless, nervous, or anxious, or unable to sleep at night because your mind is troubled all the time - these days? Not at all 10/30/2023 Exercise Vital Sign Answer Date Recorde d On average, how many days pe r week do you engage in moderate to strenuous exercise (like a brisk walk)? 0 days 10/30/2023 On average, how many minutes do you engage in exercise at this level? 0 min 10/30/2023 Hunger Vital Sign Answer Date Recorded Within the past 12 months, y ou worried that your food would run out before you got the money to buy more. Never true 10/30/19 24 Within the past 12 months, t he food you bought just didn't last and you didn't have money to get more. Never true 10/30/2023 PRAPARE - Transportation Answer Date Re corded In the past 12 months, has l ack of transportation kept you from medical appointments or from getting medications? No 07/2023 In the past 12 months, has l ack of transportation kept you from meetings, work, or from getting things needed for daily living? No 10/30/2023 Housing Stability Vital Sign Answer [...] place to sleep or slept in a usp (including now)? No 10/30/2023 Education Answer Date Recorded What is the [...] Description 09/30/2025 10:00 AM CDT [facility] [place] [address] [place] [address] Dudley Hernandez MD [address] [place] [address] documented as of this encounter Visit Diagnoses Not on filedocumented in this encounter Additional Health Concerns Assessment Noted Time PHQ-9 Depression Total Score: 0 10/30/19 24 10:28 AM CDT documented as of this encounter Care Teams Corporate Real Estate Manager Relationship Specialty Start Date End Date Dudley Hernandez MD PCP - General Internal Medicine 08/13/19 documented as of this encounter
--- OUTSIDE RECORDS SUMMARY | 2025-04-27 17:31 | XMS_ITS | Encounter Summary ---
Author Organization [facility] Address [address] [place] [address] Phone Care Team Providers Care Supervisor Prep Name Role Phone Dudley Hernandez MD Primary Care Provider [phone] Reason for Visit * Reason Comments Medication Refill Encounter Details Date Type Department Care Team (Late st Contact Info) Description 04/28/2021 Refill [facility] - Internal Medicine - [place] [address] [place] [place] [phone] Dudley Hernandez MD [address] [place] [address] Medication Refill Social History Tobacco Use Types Packs/Day Years Used Date Smoking Tobacco: Never Smokeless Tobacco: Never Alcohol Use Standard Drinks/Week Comments Not Currently 0 (1 standard drink = 0.6 oz pur e alcohol) PHQ-2 Answer Date Recorded Total Score - Questions 1-9 0 08/30 Sexually Active Control Partners Comments Not Currently [...] have Coronavirus / COVID-19? No / Unsure 04/03/2021 10:59 AM CDT documented as of this encounter Miscellaneous Notes * Telephone Encounter - Nelly Davila RN - 05/01/2021 8:13 AM CDT Medication failed the protocol, provider to review and approve the medication order if appropriate. Requested Prescriptions Pending Prescriptions Disp Refills tamsulosin (FLOMAX) 0.4 MG Capsule [Pharmacy Med Name: TAMSULOSIN HCL CAPS 0.4MG] 90 Capsule 3 Sig: TAKE 1 CAPSULE EVERY EVENING Benign Prostatic Hyperplasia Medications Protocol Passed - 04/28/2021 5:32 PM Passed - Visit with relevant provider in past 12 months or upcoming 90 days Recent Visits Date Type Provider Dept 04/03/21 [facility] Office Visit [facility] [place] Showing recent visits within past 365 days and meeting all other requirements Future Appointments No visits were found meeting these conditions. Showing future appointments within next 90 days and meeting all other requirements pravastatin (PRAVACHOL) 20 MG Tablet [Pharmacy Med Name: PRAVASTATIN TABS 20MG] 90 Tablet 3 Sig: TAKE 1 TABLET EVERY EVENING Hmg CoA Reductase Inhibitors Protocol Failed - 04/28/2021 5:32 PM Failed - Lipid panel in past 12 months LDL Date Value Ref Range Status 03/14/2021 121 0 - 130 mg/dL Final Passed - Visit with relevant provider in past 12 months or upcoming 90 days Recent Visits Date Type Provider Dept 04/03/21 Office Visit Dudley [facility] MD [facility] 09/23/20 [facility] Show[facility] recent visits within past 365 days and meeting all other requirements Future Appointments No visits were found meeting these conditions. Showing future appointments within next 90 days and meeting all other requirements documented in this encounter Plan of Treatment Upcoming Encounters Date Type Department Care Team (Late st Contact Info) Description 09/30/2025 10:00 AM CDT Office Visit [facility] - Primary Care - [place] [address] [place] [address] Dudley Hernandez MD [address] [place] [address] documented as of this encounter Visit Diagnoses Not on filedocumented in this encounter Additional Health Concerns Infection Onset Date Last Indicated Resolved Time COVID - 19 12/18/2021 12/18/2021 12/28/2021 12:1 6 AM CDT COVID - 19 Confirmed 12/18/2021 12/18/2021 022 12:16 AM CDT Assessment Noted Time PHQ-9 Depression Total Score: 0 09/24/19 21 9:00 AM CDT documented as of this encounter Care Teams Supervisor Prep Relationship Specialty Start Date End Date Dudley Hernandez MD PCP - General Internal Medicine 08/13/19 documented as of this encounter
--- OUTSIDE RECORDS SUMMARY | 2025-04-27 17:31 | XMS_ITS | Encounter Summary ---
Author Organization [facility] Address [address] [place] [address] Phone Care Team Providers Care Straight Cutter Name Role Phone Dudley Hernandez MD Primary Care Provider [phone]- [phone] Reason for Visit * Reason Comments Medication Refill Encounter Details Date Type Department Care Team (Late st Contact Info) Description 11/02/2020 Refill [facility] - [place] [address] [place] [phone] Dudley Hernandez MD [address] [place] [address] Medication Refill Social History Tobacco [...] encounter Miscellaneous Notes * Telephone Encounter - Milagro Field RN - 11/02/2020 9:26 AM CDT Per nursing clinical judgement, provider to review and approve the medication(s) order(s) if appropriate. Requested Prescriptions Pending Prescriptions Disp Refills pravastatin (PRAVACHOL) 20 MG Tablet [Pharmacy Med Name: PRAVASTATIN TABS 20MG] 90 Tablet 3 Sig: TAKE 1 TABLET EVERY EVENING Hmg CoA Reductase Inhibitors Protocol Failed - 11/02/2020 12:14 AM Failed - Lipid panel in past 12 months LDL Date Value Ref Range Status 05/02/2020 128 0 - 130 mg/dL Final Passed - Visit with relevant provider in past 12 months or upcoming 90 days Recent Visits Date Type Provider Dept 09/23/20 Office Visit Dudley Hernandez MD [facility] [place] 03/31/20 [facility] visits within past 365 days and meeting all other requirements Future Appointments No visits were found meeting these conditions. Showing future appointments within next 90 days and meeting all other requirements tamsulosin (FLOMAX) 0.4 MG Capsule [Pharmacy Med Name: TAMSULOSIN HCL CAPS 0.4MG] 90 Capsule 3 Sig: TAKE 1 CAPSULE EVERY EVENING There is no refill protocol information for this order documented in this encounter Plan of Treatment Upcoming Encounters Date Type Department Care Team (Late st Contact Info) Description 09/30/2025 10:00 AM CDT Office Visit [facility] - Primary Care - [place] [address] [place] [address] Dudley Hernandez MD [address] [place] [address] documented as of this encounter Visit Diagnoses Not on filedocumented in this encounter Additional Health Concerns Infection Onset Date Last Indicated Resolved Time COVID - 19 12/18/2021 12/18/2021 12/28/2021 12:1 6 AM CDT COVID - 19 Confirmed 12/18/2021 12/18/2021 022 12:16 AM CDT Assessment Noted Time PHQ-9 Depression Total Score: 0 09/24/19 21 9:00 AM CDT documented as of this encounter Care Teams Straight Cutter Relationship Specialty Start Date End Date Dudley Hernandez MD PCP - General Internal Medicine 08/13/19 documented as of this encounter
--- OUTSIDE RECORDS SUMMARY | 2025-04-27 17:31 | XMS_ITS | Encounter Summary ---
Author Organization [facility] Address [address] [place] [address] Phone Care Team Providers Care Airfield Manager Name Role Phone Dudley Hernandez MD Primary Care Provider +1 [phone] Reason for Visit * Reason Comments Medication Refill Encounter Details Date Type Department Care Team (Late st Contact Info) Description 09/21/2023 Refill [facility] - [facility] - [place] [address] [place] [phone] Dudley Hernandez MD [address] [place] [address] Medication Refill Social History Tobacco [...] Telephone Encounter - Malorie Ling RN - 09/23/2023 10:31 AM CDT Medication(s) [facility]illed and [facility] Medication Refill Standing Order for Pediatricand Adult Patients. Requested Prescriptions Pending Prescriptions Disp Refills lisinopril (PRINIVIL, ZESTRIL) 20 MG Tablet [Pharmacy Med Name: LISINOPRIL 20 MG TABLET] 180 Tablet2 Sig: TAKE 1 TABLET BY MOUTH TWICE A DAY ADAMS Inhibitors Protocol Passed - 09/21/2023 6:58 AM Passed - Serum potassium on record in past 12 months POTASSIUM Date Value Ref Range Status 05/02/2023 4.3 3.5 - 5.1 mmol/L Final Passed - Blood pressure on record in past 12 months Clinician-entered: BP Readings from Last 3 Encounters: 04/29/23 140/84 10/02/22 126/80 04/03/22 12472 Patient-entered: No data recorded Passed - Visit with relevant provider in past 12 months or upcoming 90 days Recent Visits Date Type Provider Dept 04/29/23 Office Visit Dudley Hernandez MD [facility] [place] 10/02/22 Office Visit Dudley Hernandez MD [facility] [place] Showing recent visits within past 365 days and meeting all other requirements Future Appointments Date Type Provider Dept 10/30/23 Appointment Dudley Hernandez MD [facility] [place] Showing future appointments within next 90 days and meeting all other requirements Passed - GFR on record in past 12 months GFR, EST. NONAFRICAN Date Value Ref Range Status 05/02/2023 >60 >=60 Final amLODIPine (NORVASC) 5 MG Tablet [Pharmacy Med Name: AMLODIPINE BESYLATE 5 MG TAB] 180 Tablet 2 Sig: TAKE 1 TABLET BY MOUTH TWICE A DAY Calcium-Channel Blockers Protocol Passed - 09/21/2023 6:58 AM Passed - BP on record in the past year Clinician-entered: BP Readings from Last 3 Encounters: 04/29/23 140/84 10/02/22 126/80 04/03/22 124/72 Patient-entered: No data recorded Passed - Visit with relevant provider in past 12 months or upcoming 90 days Recent Visits Date Type Provider Dept 04/29/23 Office Visit Dudley Hernandez MD [facility] [place] 10/02/22 Office Visit Dudley Hernandez MD [facility] [place] Showing recent visits within past 365 days and meeting all other requirements Future Appointments Date Type Provider Dept 10/30/23 Appointment Dudley Hernandez MD [facility] [place] Showing future appointments within next 90 days and meeting all other requirements documented in this encounter Plan of Treatment Upcoming Encounters Date Type Department Care Team (Late st Contact Info) Description 09/30/2025 10:00 AM CDT Office Visit [facility] - Primary Care - [place] [address] [place] [address] Dudley Hernandez MD [address] [place] [address] documented as of this encounter Visit Diagnoses Not on filedocumented in this encounter Additional Health Concerns Assessment Noted Time PHQ-9 Depression Total Score: 0 09/24/19 21 9:00 AM CDT documented as of this encounter Care Teams Airfield Manager Relationship Specialty Start Date End Date Dudley Hernandez MD PCP - General Internal Medicine 08/13/19 documented as of this encounter
--- OUTSIDE RECORDS SUMMARY | 2025-04-27 17:31 | XMS_ITS | Encounter Summary ---
Author Organization [facility] Address [address] [place] [address] Phone Care Team Providers Care Lumber Checker Name Role Phone Dudley Hernandez MD Primary Care Provider [phone]- [phone] Reason for Visit * Reason Comments Medication Refill Encounter Details Date Type Department Care Team (Late st Contact Info) Description 07/04/2020 Refill [facility] - Internal Medicine - [place] [address] [place] [phone] Dudley Hernandez MD [address] [place] [address] Medication Refill Social History Tobacco [...] Telephone Encounter - Nelly Davila RN - 07/04/2020 12:43 PM COSMETOLOGY PROFESSOR Please review and sign. ETOLOGY PROFESSOR documented in this encounter Plan of Treatment Upcoming Encounters Date Type Department Care Team (Late st Contact Info) Description 09/30/2025 10:00 AM CDT Office Visit [facility] - Primary Care - [place] [address] [place] [address] Dudley Hernandez MD [address] [place] [address] documented as of this encounter Visit Diagnoses Not on filedocumented in this encounter Additional Health Concerns Infection Onset Date Last Indicated Resolved Time COVID - 19 12/18/2021 12/18/2021 12/28/2021 12:1 6 AM CDT COVID - 19 Confirmed 12/18/2021 12/18/2021 022 12:16 AM CDT Assessment Noted Time PHQ-9 Depression Total Score: 0 03/31/20 20 1:00 PM CDT documented as of this encounter Care Teams Lumber Checker Relationship Specialty Start Date End Date Dudley Hernandez MD PCP - General Internal Medicine 08/13/19 documented as of this encounter
--- OUTSIDE RECORDS SUMMARY | 2025-04-27 17:31 | XMS_ITS | Encounter Summary ---
Author Organization [facility] Address [address] [place] [address] Phone Care Team Providers Care Supervisor Microbiology Technologists Name Role Phone uDdley Hernandez MD Primary Care Provider [phone] [phone] Reason for Visit * Reason Comments Medication Refill Encounter Details Date Type Department Care Team (Late st Contact Info) Description 10/15/2023 Refill [facility] - [facility] Medicine - [place] [address] [place] [phone] Dudley Hernandez MD [address] [place] [address] Medication Refill Social History Tobacco [...] Telephone Encounter - Malorie Ling RN - 10/15/2023 9:06 AM CDT Medication(s) refilled and signed per [facility] Chronic Medication Refill Standing Order for Pediatricand Adult Patients. Requested Prescriptions Pending Prescriptions Disp Refills tamsulosin (FLOMAX) 0.4 MG Capsule [Pharmacy Med Name: TAMSULOSIN HCL 0.4 MG CAPSULE] 90 Capsule 2 Sig: TAKE 1 CAPSULE BY MOUTH EVERY EVENING Benign Prostatic Hyperplasia Medications Protocol Passed - 10/15/2023 12:32 AM Passed - Visit with relevant provider in past 12 months or upcoming 90 days Recent Visits Date Type Provider Dept 04/29/23 Office Visit Dudley Hernandez MD [facility] [place] Showing recent visits within past 365 days and meeting all other requirements Future Appointments Date Type Provider Dept 10/30/23 Appointment Dudley Hernandez MD [facility] [place] Showing future appointments within next 90 days and meeting all other requirements documented in this encounter Plan of Treatment Upcoming Encounters Date Type Department Care Team (Late st Contact Info) Description 09/30/2025 10:00 AM CDT Office Visit [facility] - Primary Care - [place] [address] [place] [address] Dudley Hernandez MD [address] [place] [address] documented as of this encounter Visit Diagnoses Not on filedocumented in this encounter Additional Health Concerns Assessment Noted Time PHQ-9 Depression Total Score: 0 09/24/19 21 9:00 AM CDT documented as of this encounter Care Teams Supervisor Microbiology Technologists Relationship Specialty Start Date End Date Dudley Hernandez MD PCP - General Internal Medicine 08/13/19 documented as of this encounter
== END 2025-04-27 16:34 | disposition home or self-care (01) ==
PROVIDERS: PCP Internal Medicine
DX: S61.211A Laceration without foreign body of left index finger without damage to nail, initial encounter (principal); W29.3XXA Contact with powered garden and outdoor hand tools and machinery, initial encounter; I10 Essential (primary) hypertension; E78.5 Hyperlipidemia, unspecified; K21.9 Gastro-esophageal reflux disease without esophagitis; K22.70 Barrett's esophagus without dysplasia; N40.0 Benign prostatic hyperplasia without lower urinary tract symptoms
CPT/HCPCS: 12001; 29130; 99212; G0463; J2003

== ENCOUNTER 2025-05-09 12:48 | Emergency (ER) | payer MEDICARE, SELFPAY ==
--- NOTE | 2025-05-09 12:49 | ED.WOUNDLAC ---
HPI - Wound/Laceration General Chief Complaint: Wound/Laceration Stated Complaint: Suture Removal/Finger Time Seen by Provider: 05/09/25 12:49 Source: patient Mode of arrival: ambulatory Limitations: no limitations History of Present Illness HPI narrative: Pavel is a 69-year-old male patient presenting to the clinic today with for suture removal. He had sutures placed in his left index finger on April 27 after cutting his finger with a chain saw. No concerns Related Data Home Medications ?Medication ?Instructions ?Recorded ?Confirmed ?Last Taken ?Type amlodipine 5 mg tablet 5 mg PO BID 04/28/20 05/31/23 Unknown History lansoprazole 30 mg capsule,delayed 30 mg PO DAILY 04/28/20 05/31/23 Unknown History release (Prevacid) lisinopril 20 mg tablet 20 mg PO BID 04/28/20 05/31/23 Unknown History hydralazine 50 mg tablet mg 04/27/25 Unknown History hydrochlorothiazide 12.5 mg tablet mg 04/27/25 Unknown History pravastatin 20 mg tablet mg 04/27/25 Unknown History Allergies Allergy/AdvReac Type Severity Reaction Status Date / Time No Known Allergies Allergy Verified 05/09/25 13:07 Review of Systems Review of Systems: Pertinent positives per HPI. Patient denies any fever, chills, rash, headache, visual changes, dizziness, cough, runny nose, sore throat, shortness of breath, chest pain, palpitations, nausea, vomiting, diarrhea, constipation, abdominal pain, or any urinary issues. PMFSH Comments At the time of my signature, I reviewed and agree with the nursing past medical, surgical, social, and family history. There is no relevant family history pertinent to the patient complaint. Exam Narrative: General: Well-developed, well nourished, in no apparent distress Head: Normocephalic, atraumatic. Cardio: Regular rate and rhythm, s1 and s2 normal, no murmur appreciated. Resp: Clear to auscultation bilaterally, no rhonchi, rales, wheezing or rubs. Integumentary: [place], warm, and dry, localized redness around the wound without drainage, erythema, or pain. Course Course Emergency Course: Portions of this record may have been created with voice recognition software. Level of Care: Express Care Visit Vital Signs Vital signs: Vital Signs Temperature 36.4 C L 05/09/25 12:55 Pulse Rate 71 05/09/25 12:55 Respiratory Rate 14 05/09/25 12:55 Blood Pressure 128/92 H 05/09/25 12:55 Pulse Oximetry 99 05/09/25 12:55 Oxygen Delivery Room Air 05/09/25 12:55 Temperature 36.4 C L 05/09/25 12:55 Pulse Rate 71 05/09/25 12:55 Respiratory Rate 14 05/09/25 12:55 Blood Pressure 128/92 H 05/09/25 12:55 Pulse Oximetry 99 05/09/25 12:55 Oxygen Delivery Room Air 05/09/25 12:55 Vital signs reviewed MDM - Wound/Laceration MDM Narrative Medical decision making narrative: At the time of visit patient is resting comfortably on the exam table. Patient appears to be nontoxic. Presenting to the clinic today with for suture removal. He had sutures placed in his left index finger on April 27 after cutting his finger with a chain saw. No concerns. On exam patient has localized redness around the wound without drainage, erythema, or pain. Procedure: Suture removal was performed using forceps and iris scissors. Five interrupted sutures were removed. Minimal dehiscence of the wound after removal of suture- steri strips placed. Plan: Sutures were removed in the clinic today. Steri strips placed. Watch for S/S of infection. Supportive measures were discussed with the patient and they voiced understanding discharge instructions and agrees to treatment plan. Return precautions reviewed Differential Diagnosis Differential diagnosis: Likely other ( Healing wound, suture removal, wound infection, cellulitis, dehiscence) Discharge Plan Discharge Clinical Impression: Encounter for removal of sutures, Dehiscence of laceration wound of finger Patient Disposition: Home Condition: Stable Instructions: Antibiotic Form, Wound Dehiscence (ED), Skin Adhesive Strips (ED), Stitches Removal (ED) Additional Instructions: Sutures removed in the clinic today- very minimal dehiscence with removal of sutures Steri-strips applied- keep these in place- allow them to fall off on their own. Keep area clean and dry Watch for sign/symptoms of infection-increase in redness, swelling, purulent drainage, or streaking Avoid getting the area wet as much as possible. May continue to wear the metal finger splint Follow up with your PCP in 3-5 days for a wound check. Patient Language: Portuguese Prescriptions: No Action lisinopril 20 mg Tablet 20 mg PO BID amlodipine 5 mg Tablet 5 mg PO BID lansoprazole [Prevacid] 30 mg Capsule,Delayed Release(Dr/Ec) 30 mg PO DAILY hydralazine 50 mg tablet pravastatin 20 mg tablet hydrochlorothiazide 12.5 mg tablet Follow-up/Referrals: David,Dudley Saenz MD [Primary Care Provider, Unknown] Time of Disposition: 13:08 Quality NIHSS Nursing Documentation ED NIHSS nursing documentation: reviewed/agree
--- OUTSIDE RECORDS SUMMARY | 2025-05-09 12:49 | XMS_ITS | Encounter Summary ---
Author Organization [facility] Address [address] [place] [address] Phone Care Team Providers Care Air Conditioning Mechanic Industrial Name Role Phone Dudley Hernandez MD Primary Care Provider [phone] Reason for Visit * Reason Comments Medication Refill Encounter Details Date Type Department Care Team (Late st Contact Info) Description 10/15/2023 Refill [facility] - [facility] Medicine - [place] [address] [address] Dudley Hernandez MD [address] [place] [address] Medication Refill Social History Tobacco [...] AM CDT Medication(s) [facility] and [facility] Medication Refill Standing Order for Pediatricand [...] Dept 04/29/23 Office Visit Dudley Hernandez MD [facility] [place] Showing recent visits within past 365 days and meeting all other requirements Future Appointments Date Type Provider Dept 10/30/23 Appointment Dudley Hernandez MD [facility] [place] Showing future appointments within next 90 days and meeting all other requirements documented in this encounter Plan of Treatment Upcoming Encounters Date Type Department Care Team (Late st Contact Info) Description 09/30/2025 10:00 AM CDT Office Visit [facility] - Primary Care - [place] [address] [place] [address] Dudley Hernandez MD [address] [place] [address] documented as of this encounter Visit Diagnoses Not on filedocumented in this encounter Additional Health Concerns Assessment Noted Time PHQ-9 Depression Total Score: 0 09/24/19 21 9:00 AM CDT documented as of this encounter Care Teams Air Conditioning Mechanic Industrial Relationship Specialty Start Date End Date Dudley Hernandez MD PCP - General Internal Medicine 08/13/19 documented as of this encounter
--- OUTSIDE RECORDS SUMMARY | 2025-05-09 12:49 | XMS_ITS | Encounter Summary ---
Author Organization [facility] Address [address] [place] [address] Phone Care Team Providers Care Block Trimmer Name Role Phone Dudley Hernandez MD Primary Care Provider [phone] Reason for Visit * Reason Comments Medication Refill Encounter Details Date Type Department Care Team (Late st Contact Info) Description 10/11/2023 Refill [facility] - [facility] - [place] [address] [place] [phone] Dudley Hernandez MD [address] [place] [address] Medication Refill Social History Tobacco [...] AM CDT Medication(s) [facility] and [facility] Chronic Medication Refill Standing Order for [...] Dept 04/29/23 Office Visit Dudley Hernandez MD [facility] [place] Showing recent visits within past 365 days and meeting all other requirements Future Appointments Date Type Provider Dept 10/30/23 Appointment Dudley Hernandez MD [facility] Showing future appointments within next 90 days [...] Description 09/30/2025 10:00 AM CDT [facility] - [facility] Care - [place] [address] [place] [address] Dudley Hernandez MD [address] [place] [address] documented as of this encounter Visit Diagnoses Not on filedocumented in this encounter Additional Health Concerns Assessment Noted Time PHQ-9 Depression Total Score: 0 09/24/19 21 9:00 AM CDT documented as of this encounter Care Teams Block Trimmer Relationship Specialty Start Date End Date Dudley Hernandez MD PCP - General Internal Medicine 08/13/19 documented as of this encounter
--- OUTSIDE RECORDS SUMMARY | 2025-05-09 12:49 | XMS_ITS | Encounter Summary ---
Author Organization [facility] Address [address] [place] [address] Phone Care Team Providers Care Standards Engineer Name Role Phone Dudley Hernandez MD Primary Care Provider [phone] Reason for Visit * Reason Comments Medication Refill Encounter Details Date Type Department Care Team (Late st Contact Info) Description 02/04/2024 Refill [facility] - Internal Medicine - [place] [address] [place] [address] Dudley Hernandze MD [address] [place] [address] Medication Refill Social History Tobacco Use Types Packs/Day Years Used Date Smoking Tobacco: Never Passive Smoke Exposure: Never Smokeless Tobacco: Never Alcohol Use Standard Drinks/Week Comments Not Currently 0 (1 standard drink = 0.6 oz pur e alcohol) [facility] Utilities Answer Date Recorded In the past 12 months has [place], gas, oil, or water [employer] threatened to shut off services in your [...] week 10/30/2023 How often do you attend chur or protestant services? More than 4 times per year 10/30/2023 Do you belong to any clubs o r organizations such as sabianism groups, unions, fraternal or athletic groups, or [...] Total Score - Questions 1-9 0 07/2023 [facility] - Occupational [...] place to sleep or slept in a [place] health care facility (including now)? No 10/30/2023 Education Answer Date [...] [facility] - Primary Care - [place] [address] [place] [address] Dudley Hernandez MD [address] [place] [address] documented as of this encounter Visit Diagnoses Not on filedocumented in this encounter Additional Health Concerns Assessment Noted Time PHQ-9 Depression Total Score: 0 10/30/19 24 10:28 AM CDT documented as of this encounter Care Teams Standards Engineer Relationship Specialty Start Date End Date Dudley Hernandez MD PCP - General Internal Medicine 08/13/19 documented as of this encounter
--- OUTSIDE RECORDS SUMMARY | 2025-05-09 12:49 | XMS_ITS | Encounter Summary ---
Author Organization [facility] Address [address] [place] [address] Phone Care Team Providers Care Oral And Maxillofacial Surgeon Name Role Phone Dudley Hernandez MD Primary Care Provider [phone] Reason for Visit * Reason Comments Medication Refill Encounter Details Date Type Department Care Team (Late st Contact Info) Description 07/04/2020 Refill [facility] - Internal Medicine - [place] [address] [place] [address] [phone] Dudley Hernandez MD [address] [place] [address] Medication Refill Social History Tobacco [...] Nelly Davila RN - 07/04/2020 12:43 PM DELI BAKERY CLERK Please review and sign. BAKERY CLERK documented in this encounter Plan of Treatment Upcoming Encounters Date Type Department Care Team (Late st Contact Info) Description 09/30/2025 10:00 AM CDT Office Visit [facility] - Primary Care - [place] [address] [place] [phone] Dudley Hernandez MD [address] [place] [address] documented as of this encounter Visit Diagnoses Not on filedocumented in this encounter Additional Health Concerns Infection Onset Date Last Indicated Resolved Time COVID - 19 12/18/2021 12/18/2021 12/28/2021 12:1 6 AM CDT COVID - 19 Confirmed 12/18/2021 12/18/2021 022 12:16 AM CDT Assessment Noted Time PHQ-9 Depression Total Score: 0 03/31/20 20 1:00 PM CDT documented as of this encounter Care Teams Oral And Maxillofacial Surgeon Relationship Specialty Start Date End Date Dudley Hernandez MD PCP - General Internal Medicine 08/13/19 documented as of this encounter
--- OUTSIDE RECORDS SUMMARY | 2025-05-09 12:49 | XMS_ITS | Encounter Summary ---
Author Organization [facility] Address [address] [place] [address] Phone Care Team Providers Care Starch Treating Assistant Name Role Phone Dudley Hernandez MD Primary Care Provider [phone] Reason for Visit * Reason Comments Medication Refill Encounter Details Date Type Department Care Team (Late st Contact Info) Description 09/03/2020 Refill [facility] - Internal Medicine - [place] [address] [place] [address] [phone] Dudley Hernandez MD [address] [place] [address] Medication Refill Social History Tobacco [...] 9:20 AM CST Please review and sign. R MECHANIC documented in this encounter Plan of Treatment Upcoming Encounters Date Type Department Care Team (Late st Contact Info) Description 09/30/2025 10:00 AM CDT Office Visit [facility] - Primary Care - [place] [address] [place] [address] Dudley Hernandez MD [address] [place] [address] documented as of this encounter Visit Diagnoses Not on filedocumented in this encounter Additional Health Concerns Infection Onset Date Last Indicated Resolved Time COVID - 19 12/18/2021 12/18/2021 12/28/2021 12:1 6 AM CDT COVID - 19 Confirmed 12/18/2021 12/18/2021 022 12:16 AM CDT Assessment Noted Time PHQ-9 Depression Total Score: 0 03/31/20 20 1:00 PM CDT documented as of this encounter Care Teams Starch Treating Assistant Relationship Specialty Start Date End Date Dudley Hernandez MD PCP - General Internal Medicine 08/13/19 documented as of this encounter
--- OUTSIDE RECORDS SUMMARY | 2025-05-09 12:49 | XMS_ITS | Encounter Summary ---
Author Organization [facility] Address [address] [place] [address] Phone Care Team Providers Care Software Engineering Project Manager Name Role Phone Dudley Hernandez MD Primary Care Provider [phone] Reason for Visit * Reason Comments Medication Refill Encounter Details Date Type Department Care Team ([facility] Contact Info) Description 10/02/2020 Refill [facility] - Internal Medicine - [place] [address] [place] [phone] Dudley Hernandez MD [address] [place] [address] Medication Refill Social [...] Upcoming Encounters Date Type Department Care Team ([facility] Contact Info) Description 09/30/2025 10:00 AM CDT Office Visit [facility] - Primary Care - [place] [address] [place] [phone] Dudley Hernandez MD [address] [place] [address] documented as of this encounter Visit Diagnoses Not on filedocumented in this encounter Additional Health Concerns Infection Onset Date Last Indicated Resolved Time COVID - 19 12/18/2021 12/18/2021 12/28/2021 12:1 6 AM CDT COVID - 19 Confirmed 12/18/2021 12/18/2021 022 12:16 AM CDT Assessment Noted Time PHQ-9 Depression Total Score: 0 09/24/19 21 9:00 AM CDT documented as of this encounter Care Teams Software Engineering Project Manager Relationship Specialty Start Date End Date Dudley Hernandez MD PCP - General Internal Medicine 08/13/19 documented as of this encounter
--- OUTSIDE RECORDS SUMMARY | 2025-05-09 12:49 | XMS_ITS | Encounter Summary ---
Author Organization [facility] Address [address] [place] [address] Phone Care Team Providers Care Insurance Defense Attorney Name Role Phone Dudley Hernandez MD Primary Care Provider [phone]- [phone] Reason for Visit * Reason Comments Medication Refill Encounter Details Date Type Department Care Team (Late st Contact Info) Description 10/08/2020 Refill [facility] - Internal Medicine - [place] [address] [place] [phone] Dudley Hernandez MD [address] [place] [address] Medication Refill Social History Tobacco [...] Description 09/30/2025 10:00 AM CDT Office Visit [facility] - Primary Care - [place] [address] [place] [address] Dudley Hernandez MD [address] [place] [address] documented as of this encounter Visit Diagnoses Not on filedocumented in this encounter Additional Health Concerns Infection Onset Date Last Indicated Resolved Time COVID - 19 12/18/2021 12/18/2021 12/28/2021 12:1 6 AM CDT COVID - 19 Confirmed 12/18/2021 12/18/2021 022 12:16 AM CDT Assessment Noted Time PHQ-9 Depression Total Score: 0 09/24/19 21 9:00 AM CDT documented as of this encounter Care Teams Insurance Defense Attorney Relationship Specialty Start Date End Date Dudley Hernandez MD PCP - General Internal Medicine 08/13/19 documented as of this encounter
--- OUTSIDE RECORDS SUMMARY | 2025-05-09 12:49 | XMS_ITS | Encounter Summary ---
Author Organization [facility] Address [address] [place] [address] Phone Care Team Providers Care Breakfast Attendant Name Role Phone Dudley Hernandez MD Primary Care Provider [phone] Reason for Visit * Reason Comments Medication Refill Encounter Details Date Type Department Care Team (Late st Contact Info) Description 04/28/2021 Refill [facility] - Internal Medicine - [place] [address] [place] [phone] Dudley Hernandez MD [address] [place] [address] Medication Refill Social History Tobacco [...] Dept 04/03/21 [facility] Visit Dud[facility] [place] Showing recent visits within past 365 days [...] Dept 04/03/21 Office Visit Dudley Hernandez MD [facility] 09/23/20 Office Visit [facility] Showing recent visits within past 365 days and meeting all other requirements Future Appointments No visits were found meeting these conditions. Showing future appointments within next 90 days and meeting all other requirements documented in this encounter Plan of Treatment Upcoming Encounters Date Type Department Care Team (Late st Contact Info) Description 09/30/2025 10:00 AM CDT Office Visit [facility] - Primary Care - [place] [address] [place] [address] Dudley Hernandez MD [address] [place] [address] documented as of this encounter Visit Diagnoses Not on filedocumented in this encounter Additional Health Concerns Infection Onset Date Last Indicated Resolved Time COVID - 19 12/18/2021 12/18/2021 12/28/2021 12:1 6 AM CDT COVID - 19 Confirmed 12/18/2021 12/18/2021 022 12:16 AM CDT Assessment Noted Time PHQ-9 Depression Total Score: 0 09/24/19 21 9:00 AM CDT documented as of this encounter Care Teams Breakfast Attendant Relationship Specialty Start Date End Date Dudley Hernandez MD PCP - General Internal Medicine 08/13/19 documented as of this encounter
--- OUTSIDE RECORDS SUMMARY | 2025-05-09 12:49 | XMS_ITS | Encounter Summary ---
Author Organization [facility] Address [address] [place] [address] Phone Care Team Providers Care College Professor Name Role Phone Dudley Hernandez MD Primary Care Provider [phone] Reason for Visit * Reason Comments Medication Refill Encounter Details Date Type Department Care Team (Late st Contact Info) Description 11/02/2020 Refill [facility] - [facility] Medicine - [place] [address] [place] [phone] Dudley Hernandez MD [address] [place] [address] Medication Refill Social History Tobacco [...] 09/23/20 Office Visit Dudley Hernandez MD [facility] [place] 03/31/20 [facility] recent visits within past 365 [...] Description 09/30/2025 10:00 AM CDT Office Visit [facility] - Primary Care - [place] [address] [place] [address] Dudley Hernandez MD [address] [place] [address] documented as of this encounter Visit Diagnoses Not on filedocumented in this encounter Additional Health Concerns Infection Onset Date Last Indicated Resolved Time COVID - 19 12/18/2021 12/18/2021 12/28/2021 12:1 6 AM CDT COVID - 19 Confirmed 12/18/2021 12/18/2021 022 12:16 AM CDT Assessment Noted Time PHQ-9 Depression Total Score: 0 09/24/19 21 9:00 AM CDT documented as of this encounter Care Teams College Professor Relationship Specialty Start Date End Date Dudley Hernandez MD PCP - General Internal Medicine 08/13/19 documented as of this encounter
--- OUTSIDE RECORDS SUMMARY | 2025-05-09 12:49 | XMS_ITS | Encounter Summary ---
Author Organization [facility] Address [address] [place] [address] Phone Care Team Providers Care Women'S Studies Lecturer Name Role Phone Dudley Hernandez MD Primary Care Provider [phone] Reason for Visit * Reason Comments Medication Refill Encounter Details Date Type Department Care Team (Late st Contact Info) Description 09/21/2023 Refill [facility] - [place] [address] [place] [phone] Dudley Hernandez MD [address] [place] [address] Medication Refill Social History Tobacco [...] AM CDT Medication([facility]) [facility] and [facility] Medication Refill Standing Order [...] Office Visit Dudley Hernandez MD [facility] [place] 10/02/22 Office Visit Dudley Hernandez MD [facility] [place] Showing recent visits within past 365 days and meeting all other requirements Future Appointments Date Type Provider Dept 10/30/23 Appointment Dudley Hernandez MD [facility] [place] Showing future appointments within next 90 days [...] Office Visit Dudley Hernandez MD [facility] [place] 10/02/22 Office Visit Dudley Hernandez MD [facility] [place] Showing recent visits within past 365 days and meeting all other requirements Future Appointments Date Type Provider Dept 10/30/23 Appointment Dudley Hernandez [place] [facility] [place] Show[place] future appointments within next 90 days and meeting all other requirements documented in this encounter Plan of Treatment Upcoming Encounters Date Type Department Care Team (Late st Contact Info) Description 09/30/2025 10:00 AM CDT Office Visit [facility] - Primary [place] - [place] [address] [place] [address] Dudley Hernandez MD [address] [place] [address] documented as of this encounter Visit Diagnoses Not on filedocumented in this encounter Additional Health Concerns Assessment Noted Time PHQ-9 Depression Total Score: 0 09/24/19 21 9:00 AM CDT documented as of this encounter Care Teams Women'S Studies Lecturer Relationship Specialty Start Date End Date Dudley Hernandez MD PCP - General Internal Medicine 08/13/19 documented as of this encounter
--- OUTSIDE RECORDS SUMMARY | 2025-05-09 12:50 | XMS_ITS | Clinical Summary ---
Author Organization [facility] [place] Address [address] [place] [address] Phone Care Team Providers Care Configuration Technician Name Role Phone Dudley Hernandez MD Primary Care Provider Allergies No known active allergies Medications [place]-3 Krill Oil 300 MG Capsule Take by [...] Care Team Description 04/26/2025 Travel 04/08/2025 Telephone [facility] [address] [place] [phone] Dudley Hernandez MD Follow-up; Neck Pain 04/04/2025 Results Follow-Up [address] [phone] Dudley Hernandez MD CMP (COMPREHENSIVE METABOLIC PANEL), LIPID PANEL, PSA SCREEN 04/02/2025 8:40 AM CDT Lab [address] [phone] Benign essential hypertension; Mixed hyperlipidemia; Screening for prostate cancer Discharge Disposition: Discharged to home or Selfcare 04/01/2025 10:00 AM CDT Office Visit [address] [phone] Dudley Hernandez MD Benign essential hypertension (Primary Dx); Encounter for immunization; Mixed hyperlipidemia; Screening for prostate cancer; Acute neck pain Discharge Disposition: Discharged to home or Selfcare 04/01/2025 Travel 03/22/2025 8:44 AM CDT Anesthesia Event [facility] [address] [place] [address] Cachorro Kimble APRN, DRILL GRINDER 03/22/2025 8:40 AM CDT - 03/22/2025 9:00 AM CDT Surgery [facility] [address] [place] [address] Shelia Lilly MD PhD CATARACT EXTRACTION WITH INTRAOCULAR LENS PLACEMENT, LEFT EYE 03/22/2025 7:20 AM CDT - 03/22/2025 9:07 AM CDT Hospital [facility] [address] [place] [address] Shelia Lilly MD PhD Discharge Disposition: Discharged to home or Selfcare 03/22/2025 Travel 03/16/2025 Travel 03/08/2025 Refill [facility] - Primary Care - [place] [address] [place] [address] Dudley Hernandez MD Medication Refill 02/22/2025 9:40 AM CDT - 02/22/2025 10:00 AM CDT [facility] [address] [place] [address] Shelia Lilly MD PhD CATARACT EXTRACTION WITH INTRAOCULAR LENS PLACEMENT, RIGHT EYE 02/22/2025 9:29 AM CDT Anesthesia Event [facility] [address] [place] [address] Mukesh Lott MD 02/22/2025 8:09 AM CDT - 02/22/2025 10:03 AM CDT Hospital En[facility] [address] [place] [address] Shelia Lilly MD PhD Discharge Disposition: Discharged to home or Selfcare 02/22/2025 Travel 02/11/2025 Travel 02/11/2025 Refill [facility] - [place] [address] [place] [phone] Dudley Hernandez MD Medication Refill 02/10/2025 Patient Outreach [facility] [address] [place] [phone] Nicky Woods from Last 3 Months Immunizations Immunization Administration Dates Next Due Covid-19, Mrna, Lnp-s, Pf, 30 Mcg/0.3 Ml Dose (P fizer) 08/27/2020 Influenza Vaccine, Quadrivalent, PF 04/03/2022 Influenza, Quadrivalent, Adjuvanted 04/29/2023 Influenza, Trivalent, Adjuvanted, PF 04/01/2025, 03/31/2024 Pneumococcal conjugate PCV20 , polysaccharide [id number] conjugate, adjuvant, PF 04/03/2022 TDAP Vaccine 12/10/2020 [...] = 0.6 oz pur e alcohol) [facility] [employer] Answer Date Recorded In the past 12 months has Z[employer] software, Smaato, oil, or water [facility] threatened to shut off services in your home? No 09/30/2024 Social Connection and Isolation Panel Answer Date Recorded In a typical week, how many times do you talk on the phone with family, friends, or neighbors? Three times a week 09/30/2024 How often do you get togethe r with friends or relatives? Once a week 09/30/2024 How often do you attend [facility] or temple services? More than 4 times per year 09/30/2024 Do you belong to any clubs o r organizations such as baptist groups, unions, fraternal or athletic groups, or [...] Total Score - Questions 1-9 0 08/2024 [facility] - Occupational Stress Questionnaire Answer Date Recorded [...] place to sleep or slept in a mcc (including now)? No 10/30/2023 Housing Stability Vital Sign Answer Ahsan e Recorded In the last 12 months, was t here a time when you were not able to pay the mortgage or rent on time? No 09/30/2024 Number of Times Moved in the Last Year Not on fi le 09/30/2024 At any time in the past 12 m [facility], were you homeless or living in a mcc (including now)? No 09/30/2024 Education Answer Date [...] Primary Care - [place] [address] [place] [phone] Dudley Hernandez MD [address] [place] [address] Health Maintenance Due Date Last Done Comments [...] this topic Medical Devices Implanted Type Area Wire Bender Device Identifier Shelf Expiration Date Model / Serial / Lot Lens Iol 1-Piece Preloaded 34.0 Diopter 6mm 13mm Posterior Chamber Monofocal Aspheric Biconvex - [id number] Implanted:Qty: 1 on 02/22/2025 by Shelia Lilly MD PhD at [facility] IMPLANT [employer] 12/16/2027 DCB00 / [id number] / [id number] Lens Iol 1-Piece Preloaded Posterior Chamber Monofocal Aspheric Biconvex Anterior - [id number] Implanted:Qty: 1 on 03/22/2025 by Shelia Lilly MD PhD at [facility] IMPLANT Left: Eye [employer] 12/15/2027 [id number] / [id number] / [id number] Procedures Procedure Name Priority Date/Time Associated Diagnosis [...] CATARACT, LEFT EYE Special Needs 5'9 225lbs CA XCAPSL CTRC RMVL INSJ IO LENS PROSTH W/O ECP 03/22/2025 8:38 AM CDT VISUALLY SIGNIFICANT CATARACT, LEFT EYE Special Needs 5'9 225lbs REMV CATARACT INTRACAP,INSERT LENS 03/22/2025 8:38 AM CDT VISUALLY SIGNIFICANT CATARACT, LEFT EYE Special Needs 5'9 225lbs CA XCAPSL CTRC RMVL INSJ IO LENS PROSTH CPLX WO ECP 03/22/2025 8:38 AM CDT VISUALLY SIGNIFICANT CATARACT, LEFT EYE Special Needs 5'9 225lbs EXTCAP RMVL INSERT INTRAOC PROSTH W/ECP 02/22/2025 9:24 AM CDT VISUALLY SIGNIFICANT CATARACT, RIGHT EYE Special Needs 5'9 225lbs EXTCAP INSERT INTROC PROSTH W/ECP 02/22/2025 9:24 AM CDT VISUALLY SIGNIFICANT CATARACT, RIGHT EYE Special Needs 5'9 225lbs CA XCAPSL CTRC RMVL INSJ IO LENS PROSTH W/O ECP 02/22/2025 9:24 AM CDT VISUALLY SIGNIFICANT CATARACT, RIGHT EYE Special Needs 5'9 225lbs REMV CATARACT INTRACAP,INSERT LENS 02/22/2025 9:24 AM CDT VISUALLY SIGNIFICANT CATARACT, RIGHT EYE Special Needs 5'9 225lbs CA XCAPSL CTRC RMVL INSJ IO LENS PROSTH CPLX WO ECP 02/22/2025 9:24 AM CDT VISUALLY SIGNIFICANT CATARACT, RIGHT EYE Special Needs 5'9 225lbs HM COLONOSCOPY 07/13/2022 12:00 AM INTEGRATED CAMPAIGN MANAGER from Last 3 Months or Most Recently Relevant to Health Maintenance Results * PSA SCREEN (04/02/2025 8:24 AM CDT) PSA SCREEN, TOTAL 0.97 <4.00 ng/mL 04/02/2025 1:18 PM CDT [facility] Blood Venipuncture / Unknown 04/02/2025 8:24 AM CDT 04/02/2025 8:24 AM CDT Narrative [facility] - 04/02/2025 1:18 PM CDT The ALINITY Total PSA assay is a Chemiluminescent Microparticle Immunoassay (CMIA) for the quantitative determination of total PSA (both free PSA and PSA complexed to [id number]) in human serum. Total PSA values obtained with different assay methods, including Mark PSA assays, cannot be used interchangeably. us Dudley Hernandez MD CHEMISTRY ORDERABLES Final Result [facility] [address] [place] [address] * (ABNORMAL) LIPID PANEL (04/02/2025 8:24 AM CDT) CHOLESTEROL 179 <200 mg/dL 04/02/2025 1:14 PM CDT [facility] TRIGLYCERIDES 216(H) <150 mg/dL 04/02/2025 1:14 PM CDT [facility] HDL CHOLESTEROL 37(L) >40 mg/dL 1:14 PM CDT [facility] LDL 99 <130 mg/dL 04/02/2025 1:14 PM CDT [facility] VLDL 43 10 - 50 mg/dL 04/02/2025 1:14 PM CDT [facility] CHOL/HDL RATIO 4.8(H) 0.0 - 4.4 04/02/2025 1:14 PM CDT [facility] NON-HDL CHOLESTEROL 142(H) <130 mg/dL 04/02/2025 1:14 PM CDT [facility] Blood Venipuncture / Unknown 04/02/2025 8:24 AM CDT 04/02/2025 8:24 AM CDT us Dudley Hernandez MD CHEMISTRY ORDERABLES Final Result [facility] [address] [place] [address] * CMP (COMPREHENSIVE METABOLIC PANEL) (04/02/2025 8:24 AM CDT) SODIUM 141 136 - 145 mmol/L 04/02/2025 1:14 PM CDT [facility] POTASSIUM 4.1 3.5 - 5.1 mmol/L 04/02/2025 1:14 PM CDT [facility] CHLORIDE 106 98 - 107 mmol/L 04/02/2025 1:14 PM CDT [facility] CO2, VENOUS 25 22 - 30 mmol/L 04/02/2025 1:14 PM CDT [facility] ANION GAP 14.1 <18.0 mmol/L 04/02/2025 1:14 PM CDT [facility] GLUCOSE 95 70 - 99 mg/dL 04/02/2025 1:14 PM CDT [facility] BUN 14 8 - 26 mg/dL 04/02/2025 1:14 PM CDT [facility] CREATININE, BLOOD 1.01 0.70 - 1.30 mg/dL 04/02/2025 1:14 PM CDT [facility] BUN/CREATININE RATIO 14 12 - 20 ratio 04/02/2025 1:14 PM CDT [facility] TOTAL PROTEIN 7.3 6.0 - 8.0 g/dL 04/02/2025 1:14 PM CDT [facility] ALBUMIN 4.7 3.5 - 5.0 g/dL 04/02/2025 1:14 PM CDT [facility] A/G RATIO 1.8 1.0 - 2.2 04/02/2025 1:14 PM CDT [facility] CALCIUM 9.6 8.7 - 10.5 mg/dL 04/02/2025 1:14 PM T [facility] T BILI 0.5 0.2 - 1.2 mg/dL 04/02/2025 1:14 PM CDT [facility] SGOT (AST) 21 <43 U/L 04/02/2025 1:14 PM T [facility] SGPT (ALT) 28 <56 U/L 04/02/2025 1:14 PM T [facility] ALKALINE PHOSPHATASE 94 40 - 150 U/L 04/02/2025 1:14 PM [facility] IS THE PATIENT REQUIRED TO BE FASTING? Yes 04/02/2025 1:14 PM [facility] HAS THE PATIENT BEEN FASTING? Yes 04/02/2025 1:14 PM [facility] GFR, ESTIMATED >60 >=60 04/02/2025 1:14 PM [facility] Comment: Creatinine Clearance is the preferred criteria for selecting drug dose adjustments in renally impaired patients. The GFR is provided as additional pertinent clinical information. GFR is reported in mL/min/1.73 sq m. Calculation based on the 2020 Chronic Kidney Disease Epidemiology Collaboration (CKD-EPI) equation refit without adjustment for race. GFR, EST. >60 >=60 1:14 PM [facility] Comment: Creatinine Clearance is the preferred criteria for selecting drug dose adjustments in renally impaired patients. The GFR is provided as additional pertinent clinical information. GFR is reported in mL/min/1.73 sq m. Calculation based on the 2009 Chronic Kidney Disease Epidemiology Collaboration (CKD-EPI). GFR, EST. NONAFRICAN >60 >=60 04/02/2025 1:14 PM [facility] Comment: Creatinine Clearance is the preferred [...] Hernandez MD CHEMISTRY ORDERABLES Final Result [facility] [address] [place] [address] * HM COLONOSCOPY (07/13/2022 12:00 AM INTEGRATED CAMPAIGN MANAGER) 07/13/2022 us Provider Scan PROCEDURE/MINOR SURGICAL ORDERAB LES Final Result SCAN from Last 3 Months or Most Recently Relevant to Health Maintenance Insurance MEDICARE [facility] Care Teams Configuration Technician Relationship Specialty Start Date End Date Dudley Hernandez MD PCP - General Internal Medicine 08/13/19
[2025-05-09 12:55] VITALS: BP 128/92; PULSE 71; RESP 14; TEMP 36.4; O2SAT 99
== END 2025-05-09 13:20 | disposition home or self-care (01) ==
PROVIDERS: Emergency Provider Nurse Practitioner Family; PCP Internal Medicine
DX: S61.211D Laceration without foreign body of left index finger without damage to nail, subsequent encounter (principal); W29.3XXD Contact with powered garden and outdoor hand tools and machinery, subsequent encounter; T81.31XA Disruption of external operation (surgical) wound, not elsewhere classified, initial encounter; I10 Essential (primary) hypertension; E78.00 Pure hypercholesterolemia, unspecified; K21.9 Gastro-esophageal reflux disease without esophagitis; K22.70 Barrett's esophagus without dysplasia; N40.0 Benign prostatic hyperplasia without lower urinary tract symptoms
CPT/HCPCS: 99212; G0463